=== PATIENT | male | born 1985 | race African-American/Black ===

== ENCOUNTER 2021-09-01 05:42 | Emergency (ER) | payer SELFPAY ==
[2021-09-01 05:49] VITALS: BP 134/79; PULSE 92; RESP 13; TEMP 36.4; O2SAT 98
[2021-09-01 05:50] VITALS: BMI 25.9
--- NOTE | 2021-09-01 05:52 | W.ED.CHESTPA ---
HPI - Chest Pain General: Chief Complaint: Chest Pain Stated Complaint: Chest Pains Time Seen by Provider: 09/01/21 05:52 Source: patient Mode of arrival: ambulatory Limitations: no limitations History of Present Illness: 35-year-old male presents emergency room complaining of onset of chest discomfort while sleeping. Patient will have pain that comes almost and like cycles of every several minutes he will get a sharp pain that seems to shoot through his chest lasts just a couple of seconds and then resolves its associated with a sensation of shortness of breath, he states it shoots and flashes out to all of his extremities and then resolves in seconds. He has no personal history of coronary artery disease he is not diabetic he is a light smoker and has been for a number of years occasional drinker and occasionally uses THC. He denies any other use of street drugs. He has no history of any pulmonary emboli. He has not had any chronic respiratory illnesses and is not on any inhalers. No recent fever sweats chills flulike symptoms. He has a family history of a mother who had heart disease had her first OK sometime in her mid 40s. No other family members with early heart disease. He has no siblings with early heart disease. He has not really noticed anything that relieves the symptoms and is not affected by deep breath or palpation of the lung anterior chest wall. He does relate an elaborate series of events that seems to exacerbated if he is up walking around takes a few big deep breaths then when he lays down he will get a sudden sharp pain that will last a few seconds. MD complaint: chest pain Onset (ago): hour(s) Timing of current episode: episodic Prior episodes: No Onset: during rest Pain location: left chest Pain radiation: other (Radiates to all extremities last seconds and then resolves) Severity: mild Quality: sharp Relieving factors: nothing Exacerbating factors: other (See HPI) Associated symptoms: Deny abdominal pain, diaphoresis, dyspnea, fever(s), leg edema, nausea, palpitations, sense of impending doom, syncope or vomiting Treatment prior to arrival: none Review of Systems Const: Denies: fever(s) or diaphoresis ENMT: Denies: throat pain, ear or mastoid pain, nasal discharge or nasal congestion Card: Denies: palpitations or syncope Resp: Denies: dyspnea GI: Denies: abdominal pain, nausea or vomiting : Denies: flank pain, dysuria, urinary frequency or urinary urgency Skin/Breast: Denies: rash or pruritus PFSH ED PFSH: Medical History (Updated 09/01/21 @ 09:14 by Krzysztof Haile DO) No significant past medical history Surgical History (Updated 09/01/21 @ 06:22 by Krzysztof Haile DO) No significant past surgical history Family History (Updated 09/01/21 @ 06:23 by Krzysztof Haile DO) Mother CAD (coronary artery disease) Social History (Updated 09/01/21 @ 06:23 by Krzysztof Haile DO) Smoking and tobacco status: current every day smoker Alcohol intake: current Substance/Drug Use: current Substance/Drug use type: Marijuana Physical Exam Const: COMMON NORMALS: no acute distress GENERAL APPEARANCE: cooperative and comfortable ORIENTATION/CONSCIOUSNESS: Yes awake, Yes oriented to person, Yes oriented to place and Yes oriented to time HENMT: COMMON NORMALS: normocephalic, atraumatic and hearing grossly normal bilaterally HEAD & SCALP: normocephalic and atraumatic Neck/C-Spine: COMMON NORMALS: no JVD Resp: COMMON NORMALS: normal respiratory effort, No retractions, No use of accessory muscles and clear to auscultation bilaterally AUSCULTATION: clear to auscultation bilaterally Cardio: COMMON NORMALS: no JVD, regular rate, regular rhythm and No murmurs present (Cardio) RATE: regular rate RHYTHM: regular rhythm GI: COMMON NORMALS: Soft to palpation and No hepatosplenomegaly present AUSCULTATION: Yes normoactive bowel sounds PALPATION: Yes Soft to palpation, No Tenderness to palpation present (GI), No Guarding due to palpation present (GI) and Yes No hepatosplenomegaly present Extremity: COMMON NORMALS: normal to inspection, capillary refill normal, no clubbing, cyanosis or edema, no calf tenderness and no pedal edema Neuro: SENSORIUM/ORIENTATION: Yes oriented to person, Yes oriented to place and Yes oriented to time Skin: COMMON NORMALS: no rashes or lesions noted GENERAL SKIN EXAM: no rashes or lesions noted Course Vital Signs: Vital signs: Vital Signs Temperature 97.5 F L 09/01/21 05:49 Pulse Rate 92 09/01/21 05:49 Respiratory Rate 13 09/01/21 05:49 Blood Pressure 134/79 09/01/21 05:49 Pulse Oximetry 98 09/01/21 05:49 MDM - Chest Pain Medical Decision Making Patient has some changes in EKG related to early repull but is not currently having any chest pain his troponins are negative there is no acute ST changes noted. Symptoms do not sound particularly cardiac he has these brief shooting pains at last for in the range of seconds. He states it radiates out to almost all parts of his body like a flash. At this point we will go ahead and discharge home set him up for an exercise stress test. I do think he should have that since he has a family history of mother with very early cardiac disease. Also start him on a PPI. Return if has further problems. Medical Records I reviewed the patient's medical records. Lab Data I reviewed the patient's lab results. : 09/01/21 05:59 09/01/21 05:59 Radiology Impressions Chest X-Ray 09/01/21 05:53 IMPRESSION: No evidence of acute cardiopulmonary disease. Laboratory Results WBC 5.0 10^3/uL (4.0-10.0) 09/01/21 05:59 RBC 5.28 10^6/uL (4.1-5.3) 09/01/21 05:59 Hgb 15.5 g/dL (11.7-16.6) 09/01/21 05:59 Hct 45.7 % (42.0-52.0) 09/01/21 05:59 MCV 86.6 fl (80-94) 09/01/21 05:59 MCH 29.4 pg (28.0-34.0) 09/01/21 05:59 MCHC 33.9 g/dL (30.0-36.0) 09/01/21 05:59 RDW 13.2 % (12.1-15.1) 09/01/21 05:59 Plt Count 340 10^3/cmm (130-400) 09/01/21 05:59 MPV 8.6 fL (7.4-10.4) 09/01/21 05:59 Neut % (Auto) 41.8 % 09/01/21 05:59 Lymph % (Auto) 42.8 % 09/01/21 05:59 Humphreys % (Auto) 11.0 % 09/01/21 05:59 Eos % (Auto) 3.4 % 09/01/21 05:59 Baso % (Auto) 0.8 % 09/01/21 05:59 Neut # (Auto) 2.09 10^3/uL (1.8-7.7) 09/01/21 05:59 Lymph # (Auto) 2.1 10^3/uL (0.8-4.8) 09/01/21 05:59 Humphreys # (Auto) 0.6 10^3/uL (0.2-0.9) 09/01/21 05:59 Eos # (Auto) 0.2 10^3/uL (0.0-0.8) 09/01/21 05:59 Baso # (Auto) 0.0 10^3/uL (0.0-0.1) 09/01/21 05:59 Nucleated RBC % (auto) 0 % 09/01/21 05:59 Nucleated RBCs # 0.0 /100WBC 09/01/21 05:59 D-Dimer 0.08 ug/mIFEU (0-0.59) 09/01/21 06:43 Sodium 137 mmol/L (136-145) 09/01/21 05:59 Potassium 4.4 mmol/L (3.5-5.1) 09/01/21 05:59 Chloride 100 mmol/L (98-107) 09/01/21 05:59 Carbon Dioxide 25 mmol/L (22-29) 09/01/21 05:59 Anion Gap 16.4 (5-19) 09/01/21 05:59 BUN 9 mg/dL (6-20) 09/01/21 05:59 Creatinine 0.9 mg/dL (0.7-1.2) 09/01/21 05:59 GFR Calculation 116.2 mL/min (90-130) 09/01/21 05:59 Glucose 88 mg/dL (65-115) 09/01/21 05:59 Calculated Osmolality 282 mOsm/kg (285-295) L 09/01/21 05:59 Calcium 8.7 mg/dL (8.5-10.5) 09/01/21 05:59 Total Bilirubin 0.6 mg/dL (0.15-1.2) 09/01/21 05:59 AST 30 U/L (0-40) 09/01/21 05:59 ALT 21 U/L (0-41) 09/01/21 05:59 Alkaline Phosphatase 77 IU/L (40-130) 09/01/21 05:59 Troponin T Baseline 7 ng/L (0-15) 09/01/21 05:59 Troponin T 120 Minute 6.38 ng/L (0-15) 09/01/21 08:11 Delta Troponin T -0.62 ABS# (0-10) L 09/01/21 08:11 Total Protein 7.0 g/dL (6.6-8.7) 09/01/21 05:59 Albumin 4.8 g/dL (3.5-5.2) 09/01/21 05:59 Globulin 2.2 g/dL (1.3-4.6) 09/01/21 05:59 Discharge Plan Discharge Patient Disposition: Home Clinical Impression: Atypical chest pain, Chest pain due to GERD Condition: Stable Prescriptions: New aspirin 81 mg tablet,delayed release (DR/EC) 81 mg PO DAILY Qty: 30 0RF pantoprazole 40 mg tablet,delayed release (DR/EC) 40 mg PO QAM 56 Days Qty: 56 0RF Discharge Orders: Discharge ED (Routine); Ordered 09/01/21 Ordered By: Krzysztof Haile Discharge Diet: Usual diet Discharge Activity: Resume usual activity Patient Instructions: Opioid Safety Activity Restrictions/Additional Instructions: enterprise project manager will make arrangements for you to have a exercise stress test and establish with a primary care physician. Return if you have further problems. Coding Level of Care Code ED Ramp Service Agent for Chg Fwd Exam Comprehensive
--- NOTE | 2021-09-01 05:53 | XRR_ITS ---
PROCEDURE INFORMATION: Exam: XR Chest Exam date and time: 09/01/2021 6:20 AM Age: 35 years old Clinical indication: Angina; Patient HX: Chest pain off and on since midnight; Additional info: Dyspnea/cough TECHNIQUE: Imaging protocol: XR of the chest. Views: 1 view. COMPARISON: No relevant prior studies available. FINDINGS: Lungs: No significant or acute findings. No consolidation. Pleural spaces: No significant costophrenic angle blunting. No pneumothorax. Heart/Mediastinum: Heart size is normal. Bones/joints: No acute osseous abnormality. XR/XR chest 1V portable [id number] IMPRESSION: No evidence of acute cardiopulmonary disease.
[2021-09-01 06:06] LABS: Basophils % 0.8 %; Eosinophils # 0.2 10^3/uL (0.0-0.8); Eosinophils % 3.4 %; Hematocrit 45.7 % (42.0-52.0); Hemoglobin 15.5 g/dL (11.7-16.6); Lymphocytes # 2.1 10^3/uL (0.8-4.8); Lymphocytes % 42.8 %; Mean Corpuscular HGB Conc 33.9 g/dL (30.0-36.0); Mean Corpuscular Hemoglobin 29.4 pg (28.0-34.0); Mean Corpuscular Volume 86.6 fl (80-94); Mean Platelet Volume 8.6 fL (7.4-10.4); Monocytes # 0.6 10^3/uL (0.2-0.9); Neutrophils # 2.09 10^3/uL (1.8-7.7); Neutrophils % 41.8 %; Nucleated Red Blood Cells % 0 %; Platelet Count 340 10^3/cmm (130-400); Red Blood Count 5.28 10^6/uL (4.1-5.3); Red Cell Distribution Width 13.2 % (12.1-15.1)
[2021-09-01 06:38] LABS: Alanine Aminotransferase 21 U/L (0-41); Albumin Level 4.8 g/dL (3.5-5.2); Alkaline Phosphatase 77 IU/L (40-130); Blood Urea Nitrogen 9 mg/dL (6-20); Calcium 8.7 mg/dL (8.5-10.5); Carbon Dioxide 25 mmol/L (22-29); Chloride 100 mmol/L (98-107); Globulin 2.2 g/dL (1.3-4.6); Glomerular Filtration Rate 116.2 mL/min (90-130); Glucose 88 mg/dL (65-115); Osmolality Calculated 282 mOsm/kg (285-295); Sodium 137 mmol/L (136-145); Total Bilirubin 0.6 mg/dL (0.15-1.2); Troponin(5th) Baseline 7 ng/L (0-15)
[2021-09-01 06:47] LABS: Anion Gap 16.4 (5-19); Aspartate Amino Transferase 30 U/L (0-40); Potassium 4.4 mmol/L (3.5-5.1)
[2021-09-01 07:07] LABS: D Dimer 0.08 ug/mIFEU (0-0.59)
--- NOTE | 2021-09-01 07:53 | ECG_ITS ---
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 Measurements Intervals [place] Rate: 66 P: 75 NM: 160 QRS: 79 QRSD: 100 T: 72 QT: 388 QTc: 408 Interpretive Statements SINUS RHYTHM POSSIBLE RIGHT VENTRICULAR CONDUCTION DELAY [RSR (QR) IN V1/V2] EARLY REPOLARIZATION [ST ELEVATION WITH NORMALLY INFLECTED T-WAVE] TYPE 3 BRUGADA PATTERN (NON-DIAGNOSTIC) [COVED/SADDLEBACK ST ELEVATION > 0.1mV IN 2 OF V1-3] No previous ECG available for comparison Electronically Signed On 09-01-2021 22:14:12 CDT by Grover Mckeon M.D. [id number]
[2021-09-01 08:37] LABS: Troponin 5 2HR 6.38 ng/L (0-15)
[2021-09-01 08:46] LABS: Troponin 5 2HR Delta -0.62 ABS# (0-10)
[2021-09-01 09:31] VITALS: BP 134/79; PULSE 76; RESP 16; O2SAT 97
--- NOTE | 2021-09-01 11:53 | ECG_ITS ---
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 Measurements Intervals [place] Rate: 54 P: 43 MS: 158 QRS: 76 QRSD: 98 T: 63 QT: 401 QTc: 383 Interpretive Statements SINUS BRADYCARDIA POSSIBLE RIGHT VENTRICULAR CONDUCTION DELAY [RSR (QR) IN V1/V2] EARLY REPOLARIZATION [ST ELEVATION WITH NORMALLY INFLECTED T-WAVE] Compared to ECG 09/01/2021 05:58:15 Sinus rhythm no longer present ST (T wave) deviation no longer present Electronically Signed On 09-01-2021 22:13:17 CDT by Grover Mckeon M.D. [id number]
--- NOTE | 2021-09-04 13:51 | DCPLANNER ---
Addendum entered by Yaz Cornelius 01/23/22 09:26: stress test was cancelled Addendum entered by Yaz Cornelius 09/04/21 15:06: aviation manager had message to schedule an outpatient stress test for patient. aviation manager spoke with patient he confirmed that he wanted the stress test ordered, and that he needs to be set up with a primary care physician. aviation manager will fax signed order for a stress test to centralized scheduling, who will call patient with appointment information. aviation manager had the results of the stress test sent to Dr. Florentino at [facility]. When stress test is scheduled, piano case maker will schedule a follow up appointment for patient with Dr. Florentino to go over the stress test results with patient. Patient needs the financial foundations representative applications, piano case maker sent them to patient. Original Note: aviation manager had message to schedule an outpatient stres
== END 2021-09-01 09:33 | disposition home or self-care (01) ==
PROVIDERS: Emergency Provider Family Medicine
DX: R07.89 Other chest pain (principal); K21.9 Gastro-esophageal reflux disease without esophagitis; F17.210 Nicotine dependence, cigarettes, uncomplicated
CPT/HCPCS: 36415; 71045; 80053; 84484; 85025; 85378; 93005; 99282

== ENCOUNTER 2022-03-06 05:14 | Emergency (ER) | payer SELFPAY ==
[2022-03-06 05:23] VITALS: BP 148/73; PULSE 93; RESP 20; TEMP 36.9; O2SAT 99
--- NOTE | 2022-03-06 05:26 | W.ED.DENTAL ---
HPI - Dental/Oral General: Chief complaint: Dental/Oral Stated complaint: tooth pain Time Seen by Provider: 03/06/22 05:22 Source: patient Mode of arrival: ambulatory Limitations: no limitations History of Present Illness: 36-year-old male states a left lower molar dental pain over the last 3 days he states he got much worse today states pain is currently 9 out of 10 he has a history dental caries has not seen a dentist she denies any fever denies any trismus denies any difficulty swallowing denies any worsening proving factors. Associated symptoms: Denies fever(s) Review of Systems Const: Denies: fever(s), chills, body aches or change in appetite Eyes: Denies: blurry vision or eye discomfort ENMT: Reports: dental pain Card: Denies: chest pain Resp: Denies: dyspnea GI: Denies: abdominal pain, nausea, vomiting or diarrhea : Denies: dysuria Musc: Denies: neck pain or back pain Skin/Breast: Denies: rash Neuro: Denies: headache(s) Psych: Denies: depression Raad/Lymph: Denies: easy bruising All/Imm: Denies: urticaria PFSH ED PFSH: Medical History No significant past medical history Surgical History No significant past surgical history Family History Mother CAD (coronary artery disease) Social History Smoking and tobacco status: current every day smoker Alcohol intake: current Physical Exam Const: COMMON NORMALS: no acute distress, patient oriented x3 and healthy appearing HENMT: COMMON NORMALS: normocephalic and atraumatic HEAD & SCALP: normocephalic and atraumatic OTHER: Large dental carry to left lower molar with tenderness to touch no abscess no trismus Eye: COMMON NORMALS: conjunctivae normal CONJUNCTIVA: Yes conjunctivae normal Neck/C-Spine: COMMON NORMALS: supple Chest: COMMONS NORMALS: normal inspection of the chest Resp: COMMON NORMALS: normal respiratory effort Cardio: COMMON NORMALS: regular rate and No murmurs present (Cardio) RATE: regular rate GI: INSPECTION: Yes normal to inspection Extremity: COMMON NORMALS: normal to inspection Neuro: COMMON NORMALS: patient oriented x3, moves all extremities and no focal motor deficits Psych: COMMON NORMALS: mental status grossly normal, Normal thought process present and cooperative THOUGHT PROCESS: Normal thought process present Skin: COMMON NORMALS: no rashes or lesions noted and no wounds GENERAL SKIN EXAM: no rashes or lesions noted Procedures Nerve Block Nerve Block 1: Local Anesthetic: bupivacaine 0.5% Amount of anesthesia used (mL): 10 Side: left Intraoral Nerve Block: inferior alveolar Patient Tolerated Procedure: well Complications: none Course Vital Signs: Vital signs: Vital Signs Temperature 98.4 F 03/06/22 05:30 Pulse Rate 93 03/06/22 05:30 Respiratory Rate 20 H 03/06/22 05:30 Blood Pressure 148/73 03/06/22 05:30 Pulse Oximetry 99 03/06/22 05:30 Oxygen Delivery Me thod 03/06/22 05:30 MDM - Dental/Oral Medical Decision Making Patient presents here with dental pain he does have a dental carry did a nerve block here his pain has improved we will prescribe him Naprosyn along with Keflex for home Discharge Plan Discharge Patient Disposition: Home Clinical Impression: Toothache Condition: Stable Prescriptions: New cephalexin 500 mg capsule 500 mg PO TID 7 Days Qty: 21 0RF Naprosyn 500 mg tablet 500 mg PO BID PRN (Reason: pain) Qty: 20 0RF No Action aspirin 81 mg tablet,delayed release (DR/EC) 81 mg PO DAILY Qty: 30 0RF Discharge Orders: Discharge ED (Routine); Ordered 03/06/22 Ordered By: Jessica Menjivar Discharge Diet: Advance as tolerated Discharge Activity: Resume usual activity Patient Instructions: Toothache (ED) Coding Level of Care Code ED Dry Cleaning Supervisor for Faisal Fwd Exam Comprehensive
[2022-03-06 05:30] VITALS: BP 148/73; PULSE 93; RESP 20; TEMP 36.9; O2SAT 99
[2022-03-06] MEDS: naproxen 500 mg Tablet PO (05:33)
== END 2022-03-06 05:40 | disposition home or self-care (01) ==
PROVIDERS: Emergency Provider Emergency Medicine
DX: K08.89 Other specified disorders of teeth and supporting structures (principal); Z79.82 Long term (current) use of aspirin; F17.210 Nicotine dependence, cigarettes, uncomplicated
CPT/HCPCS: 64450; 99283; J3490

== ENCOUNTER 2022-03-08 11:20 | Emergency (ER) | payer SELFPAY ==
[2022-03-08 11:42] VITALS: BP 126/81; PULSE 71; RESP 18; TEMP 36.3; O2SAT 100; BMI 27.2
[2022-03-08 11:45] VITALS: BP 126/81; PULSE 71; RESP 18; TEMP 36.3; O2SAT 100
--- NOTE | 2022-03-08 11:50 | W.ED.DENTAL ---
HPI - Dental/Oral General: Chief complaint: Dental/Oral Stated complaint: tooth pain Time Seen by Provider: 03/08/22 11:47 History of Present Illness: Mr Mueller is a 36-year-old male with history of poor dental care and dental caries presenting to the emergency department for left posterior tooth pain mandibular. He has had about 5 days of symptoms and was worsened 3 days ago when he presented to the emergency department. After dental block his symptoms improved however returned today. He has dental appointment tomorrow. Denies any other new significant changes, no fevers, trismus, difficulty swallowing, difficulty breathing. No other specific changes in health, exacerbating, or alleviating factors identified. Teeth map: 1. fractured, dental caries Duration: intermittent Severity: severe Exacerbating factors: chewing Context: history of dental caries and poor dental care Treatment prior to arrival: oral analgesic and other Review of Systems General: Reports: 10 or more systems reviewed and unremarkable except in HPI and below PFSH ED PFSH: Medical History No significant past medical history Surgical History No significant past surgical history Family History Mother CAD (coronary artery disease) Social History Smoking and tobacco status: current every day smoker Alcohol intake: current Physical Exam Const: COMMON NORMALS: alert GENERAL APPEARANCE: cooperative and well developed HENMT: COMMON NORMALS: normocephalic and atraumatic HEAD & SCALP: normocephalic and atraumatic TEETH & GINGIVA: Yes poor dentition THROAT: posterior oropharynx normal OTHER: fractured posterior mandibular left molar without abscess, dental caries present Eye: COMMON NORMALS: conjunctivae normal CONJUNCTIVA: Yes conjunctivae normal SCLERA: sclerae normal Neck/C-Spine: COMMON NORMALS: supple GENERAL: Yes trachea midline Resp: COMMON NORMALS: clear to auscultation bilaterally EFFORT & INSPECTION: Yes able to speak in complete sentences AUSCULTATION: clear to auscultation bilaterally Cardio: COMMON NORMALS: regular rate and regular rhythm RATE: regular rate RHYTHM: regular rhythm Extremity: GENERAL: Yes normal exam except as noted and No edema Neuro: COMMON NORMALS: moves all extremities SENSORIUM/ORIENTATION: Yes alert and No Orientation impaired Psych: COMMON NORMALS: mental status grossly normal and Normal thought process present THOUGHT PROCESS: Normal thought process present Procedures Nerve Block Nerve Block 1: Local Anesthetic: bupivacaine 0.5% Amount of anesthesia used (mL): 2 Side: left Intraoral Nerve Block: inferior alveolar Patient Tolerated Procedure: well and no complications Complications: none Course Vital Signs: Vital signs: Vital Signs Temperature 97.4 F L 03/08/22 13:00 Pulse Rate 71 03/08/22 13:00 Respiratory Rate 18 03/08/22 13:00 Blood Pressure 126/81 03/08/22 13:00 Pulse Oximetry 100 03/08/22 13:00 Oxygen Delivery Me thod 03/08/22 11:45 MDM - Dental/Oral Medical Decision Making 36-year-old gentleman presenting for dental pain. Previously had successful nerve block and has dental follow-up. Patient is nontoxic and there is no evidence of distortion of posterior pharyngeal/airway anatomy. Nerve block performed again with successful analgesia. The results of ED evaluation were discussed with the patient including prescriptions and/or symptomatic cares (if applicable) including appropriate and responsible use, followup plan, and return precautions. The patient verbalized understanding and felt safe for discharge. Medical Records I reviewed the patient's medical records. Lab Data I reviewed the patient's lab results. Discharge Plan Discharge Patient Disposition: Home Clinical Impression: Dental caries, Toothache Condition: Stable Prescriptions: No Action aspirin 81 mg tablet,delayed release (DR/EC) 81 mg PO DAILY Qty: 30 0RF Naprosyn 500 mg tablet 500 mg PO BID PRN (Reason: pain) Qty: 20 0RF Discharge Orders: Discharge ED (Routine); Ordered 03/08/22 Ordered By: Randy Gonzalez Discharge Diet: Usual diet Discharge Activity: Increase activity as tolerated Patient Instructions: Dental Caries (Cavities), Toothache (ED), Pain Management Activity Restrictions/Additional Instructions: Thank you for visiting the emergency department. You were seen and evaluated for dental pain. The most likely cause of condition is fractured tooth and dental caries. This is most appropriately cared for by dentist. Please ensure that you follow-up with a dentist tomorrow morning. Return to the emergency department for uncontrolled symptoms, fevers, difficulty opening her jaw, difficulty breathing or swallowing, or anything else that you are concerned about and feel needs emergency department evaluation. Coding Level of Care Code ED Aerospace Assembler for Faisal Fwd Exam Comprehensive
[2022-03-08] MEDS: ketorolac 30 mg/mL INJ 15 MG IM (12:44)
[2022-03-08] MEDS: acetaminophen 500 mg Tablet 1000 MG PO (12:44)
[2022-03-08 13:00] VITALS: BP 126/81; PULSE 71; RESP 18; TEMP 36.3; O2SAT 100
== END 2022-03-08 13:03 | disposition home or self-care (01) ==
PROVIDERS: Emergency Provider Emergency Medicine
DX: K02.9 Dental caries, unspecified (principal); K08.89 Other specified disorders of teeth and supporting structures; Z79.82 Long term (current) use of aspirin; F17.210 Nicotine dependence, cigarettes, uncomplicated
CPT/HCPCS: 64400; 96372; 99284; J1885

== ENCOUNTER 2022-03-08 20:40 | Emergency (ER) | payer SELFPAY ==
[2022-03-08 20:57] VITALS: BP 122/77; PULSE 73; RESP 16; TEMP 36.1; O2SAT 100
--- NOTE | 2022-03-08 21:24 | W.ED.DENTAL ---
HPI - Dental/Oral General: Chief complaint: Dental/Oral Stated complaint: tooth ache Time Seen by Provider: 03/08/22 21:16 History of Present Illness: Patient is a 36-year-old male who comes to the ED with dental pain. Patient was seen here in the ED for same complaint back on March 06 and earlier today on March 08. A oral nerve block was performed here in the ED by provider earlier today and he numbing medication has worn off. Patient is in 10 out of 10 pain due to bottom left back molar. He has an appointment with dentist at 11 AM tomorrow morning. Associated symptoms: Denies fever(s) or odynophagia Review of Systems Const: Denies: fever(s), chills or fatigue Eyes: Denies: change in vision or eye discomfort ENMT: Reports: dental pain; Denies: throat pain, odynophagia, nasal discharge or nasal congestion Card: Denies: chest pain, palpitations, edema, swelling of feet/ankles, dyspnea on exertion or orthopnea Resp: Denies: dyspnea, productive cough or non-productive cough GI: Denies: abdominal pain, nausea, vomiting, diarrhea, constipation or hematochezia : Denies: flank pain, difficulty urinating, dysuria or hematuria Musc: Denies: neck pain, back pain or extremity swelling Skin/Breast: Denies: rash or new lesions Neuro: Denies: headache(s), numbness in extremities or weakness in extremities [facility] ED PFSH: Medical History No significant past medical history Surgical History No significant past surgical history Family History Mother CAD (coronary artery disease) Social History Smoking and tobacco status: current every day smoker Alcohol intake: current Physical Exam Const: COMMON NORMALS: patient oriented x3 and alert GENERAL APPEARANCE: cooperative HENMT: COMMON NORMALS: normocephalic HEAD & SCALP: normocephalic MOUTH: Normal oral and palatal mucosa present TEETH & GINGIVA: Yes abnormal tooth and associated gingiva lower left third molar tender, with associated gingival edema and other (Extensive dental caries decay of tooth.) THROAT: posterior oropharynx normal and uvula midline Neck/C-Spine: COMMON NORMALS: supple GENERAL: Yes normal visual inspection Resp: COMMON NORMALS: normal respiratory effort, No retractions, No use of accessory muscles and clear to auscultation bilaterally AUSCULTATION: clear to auscultation bilaterally Cardio: COMMON NORMALS: regular rate, regular rhythm, S1 normal heart sound present, S2 normal heart sound present, No gallops present (Cardio), No clicks present (Cardio), No murmurs present (Cardio) and Peripheral pulses 2+ throughout RATE: regular rate RHYTHM: regular rhythm HEART SOUNDS: S1 normal heart sound present and S2 normal heart sound present PERIPHERAL PULSES: Peripheral pulses 2+ throughout GI: COMMON NORMALS: Normal to inspection, nondistended, normoactive bowel sounds present, Soft to palpation, non-tender and no masses PALPATION: Yes Soft to palpation : COMMON NORMALS: Yes no CVA tenderness BLADDER/KIDNEY EXAM: Yes no CVA tenderness Back/Pelvis: COMMON NORMALS: no CVA tenderness Extremity: COMMON NORMALS: normal to inspection Neuro: COMMON NORMALS: patient oriented x3 SENSORIUM/ORIENTATION: Yes alert GAIT: Yes Normal gait present Skin: GENERAL SKIN EXAM: dry skin Procedures Nerve Block Nerve Block 1: Time out performed: Yes Local Anesthetic: bupivacaine 0.5% Amount of anesthesia used (mL): 8 Side: left Intraoral Nerve Block: inferior alveolar Procedure Successful: Yes Patient Tolerated Procedure: well Complications: none Course Vital Signs: Vital signs: Vital Signs Temperature 97.0 F L 03/08/22 20:57 Pulse Rate 73 03/08/22 20:57 Respiratory Rate 16 03/08/22 20:57 Blood Pressure 122/77 03/08/22 20:57 Pulse Oximetry 100 03/08/22 20:57 Oxygen Delivery Me thod 03/08/22 20:57 MDM - Dental/Oral Medical Decision Making Patient is a 36-year-old male who presents here with dental pain. He has extensive dental caries of lower back left molar which is causing his pain. Inferior alveolar nerve block was performed to help with pain. See procedure note for details. His symptoms improved after nerve block. He has an appointment with his dentist tomorrow at 11 AM to evaluate dental pain. He was discharged home and told to continue taking his previously prescribed medications. Patient understood and agreed with plan. Discharge Plan Discharge Patient Disposition: Home Clinical Impression: Toothache Condition: Stable Prescriptions: No Action aspirin 81 mg tablet,delayed release (DR/EC) 81 mg PO DAILY Qty: 30 0RF cephalexin 500 mg capsule 500 mg PO TID 7 Days Qty: 21 0RF Naprosyn 500 mg tablet 500 mg PO BID PRN (Reason: pain) Qty: 20 0RF Discharge Orders: Discharge ED (Routine); Ordered 03/08/22 Ordered By: Eliot Abdullahi Discharge Diet: Regular Discharge Activity: Increase activity as tolerated Patient Instructions: Toothache (ED) Activity Restrictions/Additional Instructions: Follow-up with dentist at your scheduled appointment tomorrow. Continue taking all home medications as previously prescribed. Return to the ER or your medical provider if condition worsens. Please read and understand discharge instructions. Thank you for choosing [facility] for your healthcare needs today. Please realize this is an emergency room and that we are providing you with a medical screening exam and this may not be complete and all inclusive of all the testing and or work up that you may need to determine your ailment or severity of your illness. It is very important that you follow up as instructed or that you return to the Emergency Department should you have concerns or if your condition changes or worsens in any way. Coding Level of Care Code ED Anatomy Teacher for Faisal Cintron Exam Comprehensive
[2022-03-08] MEDS: HYDROcodone-acetaminophen 7.5-325 mg Tablet 2 TAB PO (22:43)
== END 2022-03-08 22:45 | disposition home or self-care (01) ==
PROVIDERS: Emergency Provider Physician Assistant
DX: K08.89 Other specified disorders of teeth and supporting structures (principal); Z79.82 Long term (current) use of aspirin; F17.210 Nicotine dependence, cigarettes, uncomplicated
CPT/HCPCS: 64400; 99283; J3490

== ENCOUNTER 2022-11-10 09:14 | Observation (INO) | payer SELFPAY ==
[2022-11-10] VITALS (12 sets, daily range): BP systolic 110–145; BP diastolic 57–78; PULSE 72–100; RESP 15–20; TEMP 36.3–36.8; O2SAT 96–100; BMI 29.2
[2022-11-10] MEDS: famotidine 20 mg/2 mL INJ 40 MG IVP (09:54)
--- NOTE | 2022-11-10 10:04 | CTR_ITS ---
PROCEDURE INFORMATION: Exam: CT Abdomen And Pelvis With Contrast Exam date and time: 11/10/2022 10:26 AM Age: 37 years old Clinical indication: Nausea and other: Black stool, coffee ground vomit; Additional info: Upper gi bleed TECHNIQUE: Imaging protocol: Computed tomography of the abdomen and pelvis with contrast. Radiation optimization: All CT scans at this facility use at least one of these dose optimization techniques: automated exposure control; mA and/or kV adjustment per patient size (includes targeted exams where dose is matched to clinical indication); or iterative reconstruction. Contrast material: OMNI 350; Contrast volume: 100 ml; Contrast route: INTRAVENOUS (IV); REPORTING DATA: Count of CT and Cardiac NM exams in prior 12 months: This patient has received 0 known CTs and 0 known cardiac nuclear medicine studies in the 12 months prior to the current study. COMPARISON: CR XR chest 1V portable [id number] 09/01/2021 6:20 AM RADIATION DOSE METRICS: Total DLP (mGy-cm): 492.36 FINDINGS: Lungs: There is a 4 mm noncalcified nodule in the right lower lobe (3:1). Liver: There is fatty change involving the liver parenchyma. Gallbladder and bile ducts: No calcified gallstones, gallbladder wall thickening, or pericholecystic inflammation. No biliary ductal dilation. Pancreas: No pancreatic enlargement, peripancreatic inflammation, or ductal dilation. Spleen: The spleen is homogeneous and is not enlarged. Adrenal glands: No adrenal mass. Kidneys and ureters: No hydronephrosis, nephrolithiasis, or renal mass. Stomach and bowel: The stomach is not distended. There is unusual gastric fundal wall thickening. Medially there is suggestion that the mucosa has from the outer portion of the gastric wall. However, a through and through gastric perforation is not appreciated. There is no fluid or gas around the stomach. There is ill-defined material in the dependent portion of the stomach which is higher in attenuation than the fluid in the stomach. This higher attenuation material could be due to blood clot in the lumen of the stomach given the history. Note that this is not a multiphasic GI bleeding CT scan. There are gas bubbles trapped beneath gastric folds in the fundus of the stomach. No bowel obstruction. There is fluid in multiple nondistended loops of small bowel as well as in the colon. This fluid potentially could be blood that has peristalsis distally from the stomach. No diverticulitis. Appendix: The appendix has a normal caliber. No periappendiceal inflammation. Intraperitoneal space: No ascites or pneumoperitoneum. Vasculature: The abdominal aorta and iliofemoral arteries are normal. The mesenteric arteries are normal. The mesenteric, splenic, portal, and hepatic veins are normal. Lymph nodes: No enlarged lymph nodes. Urinary bladder: There is circumferential bladder wall thickening which may be due to cystitis. No bladder calculus. Reproductive: The prostate is not enlarged for the patient's age. Bones/joints: No acute ossesous abnormality. Soft tissues: No acute soft tissue abnormality. CT/CT abdomen pelvis w con* [id number] IMPRESSION: 1. Unusual gastric fundal wall thickening with the suggestion that perhaps there has been some separation of the mucosa from the outer layer of the stomach though this would be very unusual. Some high attenuation material within the fluid of the stomach which could be due to blood clot. Further evaluation with endoscopy may be warranted. 2. Small right lower lobe nodule. For patients at low risk (minimal or absent history of smoking and of other known risk factors), no routine follow-up is indicated. For patients at high risk (history of smoking or of other known risk factors), consider optional CT Chest at 12 months. (Reference: Agusto) REFERENCES: Agusto Cobb, et al. Guidelines for Management of Incidental Pulmonary Nodules Detected on CT Images: From the Fleischner Society 2017. Radiology. 2017;284(1):228-243.
[2022-11-10] MEDS: sodium chloride 0.9% 1,000 ML 999 ML IV (10:05)
[2022-11-10 10:17] LABS: Gastricult Occult Blood Positive (Negative)
[2022-11-10] MEDS: iohexol 350 mg/mL 500 mL Btl (per mL) IV (10:19)
[2022-11-10 10:20] LABS: Basophils % 0.5 %; Eosinophils # 0.1 10^3/uL (0.0-0.8); Hematocrit 37.2 % (42.0-52.0); Hemoglobin 12.6 g/dL (11.7-16.6); Lymphocytes # 1.7 10^3/uL (0.8-4.8); Lymphocytes % 18.8 %; Mean Corpuscular HGB Conc 33.9 g/dL (30.0-36.0); Mean Corpuscular Hemoglobin 29.6 pg (28.0-34.0); Mean Corpuscular Volume 87.5 fl (80-94); Mean Platelet Volume 8.8 fL (7.4-10.4); Monocytes # 0.7 10^3/uL (0.2-0.9); Monocytes % 8.4 %; Neutrophils # 6.24 10^3/uL (1.8-7.7); Neutrophils % 70.5 %; Nucleated Red Blood Cells % 0 %; Platelet Count 318 10^3/cmm (130-400); Red Blood Count 4.25 10^6/uL (4.1-5.3); Red Cell Distribution Width 13.6 % (12.1-15.1); White Blood Count 8.8 10^3/uL (4.0-10.0)
[2022-11-10 10:36] LABS: INR 0.93 (0.8-1.2); Partial Thromboplastin Time 23.5 SECONDS (23.9-36.7)
[2022-11-10 10:41] LABS: Alanine Aminotransferase 16 U/L (0-41); Albumin Level 4.3 g/dL (3.5-5.2); Alkaline Phosphatase 70 U/L (40-130); Anion Gap 14.7 (5-19); Aspartate Amino Transferase 23 U/L (0-40); Blood Urea Nitrogen 35 mg/dL (6-20); Calcium 8.6 mg/dL (8.5-10.5); Carbon Dioxide 24 mmol/L (22-29); Chloride 103 mmol/L (98-107); Globulin 2.1 g/dL (1.3-4.6); Glomerular Filtration Rate 114.9 mL/min (90-130); Glucose 107 mg/dL (65-115); Osmolality Calculated 292 mOsm/kg (285-295); Potassium 4.7 mmol/L (3.5-5.1); Sodium 137 mmol/L (136-145); Total Bilirubin 0.8 mg/dL (0.15-1.2); Total Protein 6.4 g/dL (6.6-8.7)
[2022-11-10] MEDS: pantoprazole 40 mg SDV 80 MG IVP (10:59)
--- NOTE | 2022-11-10 10:59 | ED_ITS ---
HPI - GI Bleed General: Chief complaint: GI Bleed Stated complaint: NVD Time Seen by Provider: 11/10/22 09:29 Source: patient Mode of arrival: ambulatory History of Present Illness: 37-year-old male presents to the emergency room with complaints of dark emesis and melanic stools. Began overnight shortly after he arrived here he vomited about 400 mL of coffee-ground like emesis which did Gastroccult positive. He has not had any bright red blood per rectum or vomiting prior blood. He has been drinking heavily recently MD complaint: coffee ground emesis and melena Onset (ago): hour(s) Relieving factors: none Exacerbating factors: none Associated symptoms: Denies abdominal pain, chills, easy bruising, epistaxis, fever(s), headache(s), malaise, nausea, other bleeding, poor appetite, rash, syncope, vomiting or weakness Treatments Prior to Arrival: none Review of Systems Const: Denies: fever(s), chills or malaise ENMT: Denies: epistaxis Card: Denies: chest pain, palpitations, irregular heart rhythm or syncope Resp: Denies: dyspnea, productive cough or non-productive cough GI: Denies: abdominal pain, nausea or vomiting : Denies: flank pain, dysuria, urinary frequency or urinary urgency Musc: Denies: neck pain or back pain Skin/Breast: Denies: rash Neuro: Denies: headache(s) Raad/Lymph: Denies: easy bruising PFS ED PFSH: Medical History No significant past medical history Surgical History No significant past surgical history Family History Mother CAD (coronary artery disease) Social History Smoking and tobacco status: current every day smoker Alcohol intake: current Substance/Drug Use: current Physical Exam Const: GENERAL APPEARANCE: cooperative and comfortable ORIENTATION/CONSCIOUSNESS: Yes awake, Yes oriented to person, Yes oriented to place and Yes oriented to time HENMT: COMMON NORMALS: normocephalic, atraumatic and hearing grossly normal bilaterally HEAD & SCALP: normocephalic and atraumatic Resp: COMMON NORMALS: normal respiratory effort, No retractions, No use of accessory muscles and clear to auscultation bilaterally AUSCULTATION: clear to auscultation bilaterally Cardio: COMMON NORMALS: regular rate, regular rhythm and No murmurs present (Cardio) RATE: regular rate RHYTHM: regular rhythm GI: COMMON NORMALS: Soft to palpation and No hepatosplenomegaly present AUSCULTATION: Yes normoactive bowel sounds PALPATION: Yes Soft to palpation, No Tenderness to palpation present (GI), No Guarding due to palpation present (GI) and Yes No hepatosplenomegaly present Extremity: COMMON NORMALS: normal to inspection, capillary refill normal, no clubbing, cyanosis or edema, no calf tenderness and no pedal edema Neuro: SENSORIUM/ORIENTATION: Yes oriented to person, Yes oriented to place and Yes oriented to time Skin: COMMON NORMALS: no rashes or lesions noted GENERAL SKIN EXAM: no rashes or lesions noted Course Vital Signs: Vital signs: Vital Signs Temperature 97.8 F 11/10/22 09:25 Pulse Rate 88 11/10/22 11:23 Respiratory Rate 16 11/10/22 09:25 Blood Pressure 118/78 11/10/22 11:23 Pulse Oximetry 99 11/10/22 11:25 Oxygen Delivery Me thod Room Air 11/10/22 10:03 MDM - GI Bleed Medical Decision Making Gastroccult positive Hemoccult is a stable at 12.6. Will place in observation discussed with surgeon and with hospitalist. Patient has been given initially Pepcid and then started on Protonix. Keep n.p.o. observe repeat hemoglobins. Medical Records I reviewed the patient's medical records. Lab Data I reviewed the patient's lab results. 11/10/22 10:00 11/10/22 10:00 Radiology Impressions Abdomen/Pelvis CT 11/10/22 10:04 IMPRESSION: 1. Unusual gastric fundal wall thickening with the suggestion that perhaps there has been some separation of the mucosa from the outer layer of the stomach though this would be very unusual. Some high attenuation material within the fluid of the stomach which could be due to blood clot. Further evaluation with endoscopy may be warranted. 2. Small right lower lobe nodule. For patients at low risk (minimal or absent history of smoking and of other known risk factors), no routine follow-up is indicated. For patients at high risk (history of smoking or of other known risk factors), consider optional CT Chest at 12 months. (Reference: Agusto) REFERENCES: Agusto Cobb, et al. Guidelines for Management of Incidental Pulmonary Nodules Detected on CT Images: From the Fleischner Society 2017. Radiology. 2017;284(1):228-243. ADDENDUM: 11/10/22 1100 Findings were discussed with KRZYSZTOF MONTES at 11/10/2022 10:53 AM CDT. He will obtain a surgical consult. Laboratory Results WBC 8.8 10^3/uL (4.0-10.0) 11/10/22 10:00 RBC 4.25 10^6/uL (4.1-5.3) 11/10/22 10:00 Hgb 12.6 g/dL (11.7-16.6) 11/10/22 10:00 Hct 37.2 % (42.0-52.0) L 11/10/22 10:00 MCV 87.5 fl (80-94) 11/10/22 10:00 MCH 29.6 pg (28.0-34.0) 11/10/22 10:00 MCHC 33.9 g/dL (30.0-36.0) 11/10/22 10:00 RDW 13.6 % (12.1-15.1) 11/10/22 10:00 Plt Count 318 10^3/cmm (130-400) 11/10/22 10:00 MPV 8.8 fL (7.4-10.4) 11/10/22 10:00 Neut % (Auto) 70.5 % 11/10/22 10:00 Lymph % (Auto) 18.8 % 11/10/22 10:00 [place] % (Auto) 8.4 % 11/10/22 10:00 Eos % (Auto) 1.0 % 11/10/22 10:00 Baso % (Auto) 0.5 % 11/10/22 10:00 Neut # (Auto) 6.24 10^3/uL (1.8-7.7) 11/10/22 10:00 Lymph # (Auto) 1.7 10^3/uL (0.8-4.8) 11/10/22 10:00 [place] # (Auto) 0.7 10^3/uL (0.2-0.9) 11/10/22 10:00 Eos # (Auto) 0.1 10^3/uL (0.0-0.8) 11/10/22 10:00 Baso # (Auto) 0.0 10^3/uL (0.0-0.1) 11/10/22 10:00 Nucleated RBC % (auto) 0 % 11/10/22 10:00 Nucleated RBCs # 0.0 /100WBC 11/10/22 10:00 PT 12.80 SECONDS (12.1-14.9) 11/10/22 10:00 INR 0.93 (0.8-1.2) 11/10/22 10:00 APTT 23.5 SECONDS (23.9-36.7) L 11/10/22 10:00 Sodium 137 mmol/L (136-145) 11/10/22 10:00 Potassium 4.7 mmol/L (3.5-5.1) 11/10/22 10:00 Chloride 103 mmol/L (98-107) 11/10/22 10:00 Carbon Dioxide 24 mmol/L (22-29) 11/10/22 10:00 Anion Gap 14.7 (5-19) 11/10/22 10:00 BUN 35 mg/dL (6-20) H 11/10/22 10:00 Creatinine 0.9 mg/dL (0.7-1.2) 11/10/22 10:00 GFR Calculation 114.9 mL/min (90-130) 11/10/22 10:00 Glucose 107 mg/dL (65-115) 11/10/22 10:00 Calculated Osmolality 292 mOsm/kg (285-295) 11/10/22 10:00 Calcium 8.6 mg/dL (8.5-10.5) 11/10/22 10:00 Total Bilirubin 0.8 mg/dL (0.15-1.2) 11/10/22 10:00 AST 23 U/L (0-40) 11/10/22 10:00 ALT 16 U/L (0-41) 11/10/22 10:00 Alkaline Phosphatase 70 U/L (40-130) 11/10/22 10:00 Total Protein 6.4 g/dL (6.6-8.7) L 11/10/22 10:00 Albumin 4.3 g/dL (3.5-5.2) 11/10/22 10:00 Globulin 2.1 g/dL (1.3-4.6) 11/10/22 10:00 Gastric Occult Blood Positive (Negative) H 11/10/22 10:04 Blood Type A Positive 11/10/22 10:10 Rho(D) Type Positive 11/10/22 10:10 Antibody Screen Negative 11/10/22 10:10 Discharge Plan Discharge Condition: Stable Prescriptions: No Action aspirin 81 mg tablet,delayed release (DR/EC) 81 mg PO DAILY Qty: 30 0RF Naprosyn 500 mg tablet 500 mg PO BID PRN (Reason: pain) Qty: 20 0RF Coding Level of Care Code ED Hotel Administrative Assistant for Faisal Cintron
--- NOTE | 2022-11-10 12:00 | PM.HP ---
Providers/Chief Complaint Admitting Physician: Lai Millan MD, hospitalist Chief Complaint: NVD History of Present Illness Brock Muellre is a 37 year old male presenting to the hospital with concerns of GI bleeding. He had some dark stool last night, and started vomiting coffee-ground material this morning. 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 He did vomit in the emergency department, and this was consistent with coffee-ground emesis. It was positive for blood. He has had some abdominal pain, which she describes as minimal and improved. He believes it was secondary to vigorous vomiting. He denies any recent anti-inflammatory use. He does not drink a lot of caffeine. He does drink alcohol sporadically, and had quite a bit in the last several days. He has never had any kind of GI bleeding before. He denies any chronic medical problems. Review of Systems General: Reports: 10 or more systems reviewed and unremarkable except in HPI and below Card: Denies: chest pain Resp: Denies: dyspnea GI: Reports: coffee ground emesis and melena Medications/Allergies Home Medications Medication Instructions Recorded Confirmed Last Taken Type aspirin 81 mg tablet,delayed 81 mg PO DAILY #30 tabs 09/01/21 Unknown Rx release naproxen 500 mg tablet (Naprosyn) 500 mg PO BID PRN pain #20 tabs 03/06/22 Unknown Rx Allergies Allergy/AdvReac Type Severity Reaction Status Date / Time No Known Allergies Allergy Verified 11/10/22 09:30 PFSH Acute PFSH: Medical History No significant past medical history Surgical History No significant past surgical history Family History Mother CAD (coronary artery disease) Social History Smoking and tobacco status: current every day smoker Alcohol intake: current Substance/Drug Use: current Other PFSH information: Supplemental PFSH Information: Denies any significant past medical history or surgeries Vitals/I&O/Wt Last Vital Signs Temp 97.8 F 11/10/22 09:25 Pulse 88 11/10/22 11:23 Resp 16 11/10/22 09:25 BP 118/78 11/10/22 11:23 Pulse Ox 99 11/10/22 11:25 O2 Del Method Room Air 11/10/22 10:03 Weight last 48 hrs Weight 92.533 kg Physical Exam Narrative: General exam demonstrates a male, in no apparent distress, conversant HEENT: Atraumatic normocephalic. Oropharynx clear Neck is supple no lymphadenopathy thyromegaly Cardiovascular regular rate and rhythm without murmur Lungs clear no wheezing or crackles Abdomen is soft with positive bowel sounds. No obvious organomegaly exam is deferred Extremities no cyanosis clubbing or edema, cap refill brisk Skin no rash Neuro no obvious focal deficits Data 11/10/22 10:00 11/10/22 10:00 Other Labs: INR is normal LFTs are normal Gastroccult positive Calcium is normal CT demonstrates gastric fundal wall thickening, question separation from mucosa with some fluid in the stomach, cannot rule out blood or blood clot. Small right lung nodule is also noted. Recommend consideration of follow-up in 1 year. A&P Assessment and plan (1) GI bleed: Patient presents with a GI bleeding, manifested by dark stools and coffee-ground emesis. This was Gastroccult positive in the emergency department. His initial hemoglobin is 12.6. We will repeat this in approximately 4 to 5 hours, unless symptoms dictate otherwise He has received Protonix in the emergency department. Continue 40 mg IV every 12 hours Keep n.p.o. currently with exception of ice chips. Would consider clear liquid diet later this evening if no abdominal pain and no further vomiting Surgery consult for concerns of GI bleed with abnormal CT scan fundal thickening with separation of mucosa. Question if this represents a Hazel Mohr tear. Counseled him on avoiding alcohol. Plan Lung nodule. Consider follow-up in 1 year Low risk for DVT, no prophylaxis needed Full code Attestations Medical Necessity Statement*: Will need less than 2 midnight stay for evaluation of GI bleed Diagnoses GI bleed K92.2 Time Spent (min) 42
[2022-11-10] MEDS: sodium chloride 0.9% 1,000 ML 100 ML IV (14:02)
--- NOTE | 2022-11-10 16:15 | P.CONIM_ITS ---
Providers/Reason For Consult Consulting Physician/Specialty*: Manny Robert MD general surgery Reason for Consult*: Upper GI bleed Requesting Physician: Kar Millan MD Attending Physician: Lai Millan MD History of Present Illness History of Present Illness Brock Mueller is a 37 year old male developed lower abdominal pain and epigastric pain yesterday and melanotic stool x2 and coffee ground emesis last night and into early AM. Pain is gone and no history of PUD in past. He had a near syncopal episode after melanotic stools with sweating and lightl he adedness. He has not had previous episode of UGI bleed before. He is not on any strong blood thinner and last ate yesterday. He had a small melanotic stool in ER area. He has not been on NSAID, aspirin, steroids recently. He has not required transfusion in past. He denies any abdominal pain currently. He does smoke daily. He has not had EGD done recently. No family history of GI tract cancer. Breast cancer does run in family. He denies any F/C/S and has had slightly decreased appetite yesterday. CT scan shows possible ulcers in stomach. Hgb in past around 15 and now 12's. SBP 110's with HR 80-90. Review of Systems Narrative: Constitutional: denies rigors, singnificant weight gain, increased appetite HEENT: denies chronic cough, blurry vision, excessive tearing, eye pain, flashing lights, odynophagia, painful mastication, change in voice, change in taste, chronic sore throat, hypersalivation Heart: denies racing heart, palpitations, othropnea, PND Lungs: denies hemoptysis, pain with deep inspiration, chronic bronchitis GI: denies dysphagia, tenesmus : denies polyuria, hematuria, painful micturation Musculoskeletal: denies hemarthrosis, Muscle wasting, change in amubation Neuro: denies new onset syncope, dysesthesia, dysequilibrium, ptosis eyelid or face SKin: denies new onset hyperalgia, new rash new cyanosis Endocrine: denies new polyuria, polydipsia, polyphagia, heat intolerance, excessive energy Hem/Onc: denies new petechiae, swollen glands, new excessive epstaxis Psych: denies racing thought Medications/Allergies Home Medications Medication Instructions Recorded Confirmed Last Taken Type aspirin 81 mg tablet,delayed 81 mg PO DAILY #30 tabs 09/01/21 Unknown Rx release naproxen 500 mg tablet (Naprosyn) 500 mg PO BID PRN pain #20 tabs 03/06/22 Unknown Rx Allergies Allergy/AdvReac Type Severity Reaction Status Date / Time No Known Allergies Allergy Verified 11/10/22 09:30 Current Medications Generic Name Dose Route Start Last Admin Trade Name Freq PRN Reason Stop Dose Admin Sodium Chloride 1,000 mls @ 100 mls/hr 11/10/22 13:28 11/10/22 14:02 Sodium Chloride 0.9% IV 100 mls/hr .Q10H ROYA Administration PFSH Acute PFSH: Medical History No significant past medical history Surgical History No significant past surgical history Family History Mother CAD (coronary artery disease) Social History Smoking and tobacco status: current every day smoker Alcohol intake: current Substance/Drug Use: current Vitals/I&O/Wt Last Vital Signs Temp 97.5 F L 11/10/22 13:28 Pulse 72 11/10/22 15:20 Resp 20 H 11/10/22 13:28 BP 138/74 11/10/22 13:28 Pulse Ox 97 11/10/22 15:20 O2 Del Method Room Air 11/10/22 15:20 11/10/22 11/10/22 11/10/22 06:59 14:59 22:59 Intake Total 1000 / 1000 Balance 1000 / 1000 Weight last 48 hrs Weight 204 lb Physical Exam Narrative: Patient is a well developed well nourished and in NAD and is afebrile with vitals stable and is answering questions appropriately with a normal affect and is alert and oriented x3 HEENT: normocephalic with normal external ears and nonicteric, oral mucosa moist and dentition normal for age, trachea midline with no large masses visualized Heart: RRR, no gallops murmurs or rubs, normal PMI with no thrills Lungs: normal excursions, no loud audible wheezing, no subcutaneous emphysema Abdomen: nondistended, no gross hepatosplenomegaly, no masses, no rigidity or rebound, no loud borborygmi Neuro: nonfocal, RASHID, grossly normal sensation Musculoskeletal: good muscle tone, no fasciculations, normal gait Skin: pink warm and dry with no rashes or ecchymosis Vascular: good radial pulses, no ulceration, less than 2 second capillary refill in hand : deferred Data 11/10/22 10:00 11/10/22 10:00 A&P Assessment and plan (1) GI bleed: Upper GI bleed possibly from PUD. PPI, npo and transfusion as necessary. He will need EGD with control of bleeding later today if he continues to have significant bleeding. His last BM earlier in morning showed less bloody and smaller volume c/w bleeding that may have stopped. Otherwise plan on EGD tomorrow AM if vitals are stable. He understands risks benefits and alternatives to egd control of bleeding and possible biopsy. Risks include bleeding infection, cardiopulmonary problems, recurrent bleeding, more procedures aspiration, perforation, missed lesion. Consult Attestations Medical Necessity Statement: Patient with recent GI bleeding with drop in hgb. Coding Level of Care Code 60314 Diagnoses GI bleed K92.2
[2022-11-10 17:41] LABS: Hematocrit 34.3 % (42.0-52.0); Hemoglobin 11.6 g/dL (11.7-16.6)
[2022-11-10] MEDS: sucralfate 1 gm/10 mL Oral Liq UDC PO (20:21)
[2022-11-10] MEDS: pantoprazole 40 mg SDV IVP (21:45)
[2022-11-11] VITALS (8 sets, daily range): BP systolic 102–139; BP diastolic 53–82; PULSE 67–86; RESP 15–18; TEMP 36.1–36.7; O2SAT 99–100
[2022-11-11] MEDS: sodium chloride 0.9% 1,000 ML 100 ML IV (01:57)
[2022-11-11 05:54] LABS: Basophils % 0.4 %; Eosinophils # 0.1 10^3/uL (0.0-0.8); Eosinophils % 2.1 %; Hematocrit 32.3 % (42.0-52.0); Lymphocytes # 1.8 10^3/uL (0.8-4.8); Lymphocytes % 37.4 %; Mean Corpuscular HGB Conc 34.1 g/dL (30.0-36.0); Mean Corpuscular Hemoglobin 30.6 pg (28.0-34.0); Mean Platelet Volume 8.7 fL (7.4-10.4); Monocytes # 0.4 10^3/uL (0.2-0.9); Monocytes % 8.9 %; Neutrophils # 2.38 10^3/uL (1.8-7.7); Neutrophils % 50.6 %; Nucleated Red Blood Cells % 0 %; Platelet Count 243 10^3/cmm (130-400); Red Blood Count 3.59 10^6/uL (4.1-5.3); Red Cell Distribution Width 13.7 % (12.1-15.1); White Blood Count 4.7 10^3/uL (4.0-10.0)
[2022-11-11 06:16] LABS: Alanine Aminotransferase 13 U/L (0-41); Albumin Level 3.7 g/dL (3.5-5.2); Alkaline Phosphatase 64 U/L (40-130); Aspartate Amino Transferase 20 U/L (0-40); Blood Urea Nitrogen 16 mg/dL (6-20); Calcium 8.5 mg/dL (8.5-10.5); Carbon Dioxide 25 mmol/L (22-29); Chloride 105 mmol/L (98-107); Globulin 2.1 g/dL (1.3-4.6); Glomerular Filtration Rate 101.7 mL/min (90-130); Glucose 93 mg/dL (65-115); Magnesium 2.1 mg/dL (1.7-2.3); Osmolality Calculated 287 mOsm/kg (285-295); Sodium 138 mmol/L (136-145); Total Bilirubin 0.6 mg/dL (0.15-1.2); Total Protein 5.8 g/dL (6.6-8.7)
[2022-11-11] MEDS: sodium chloride 0.9% 1,000 ML 30 ML IV (08:46)
--- NOTE | 2022-11-11 09:00 | P.ANESASSM_ITS ---
Pre-Anesthetic Assessment Height/Weight: Height 1.78 m Weight 92.533 kg Temp Pulse Resp BP Pulse Ox O2 Del Method 97.6 F 73 16 123/53 100 Room Air 11/11/22 07:55 11/11/22 07:55 11/11/22 07:55 11/11/22 07:55 11/11/22 07:55 11/11/22 07:55 Preop Diagnosis: upper GI bleed Operation Date: 11/11/22 08:20 Proposed Procedures p EGD(Not Applicable) - Rusty Robert MD Familial anesthetic complications: None Was Beta Juancho taken within 24 hours: N/A Was Clonidine taken within 24 hours: N/A Last intake: Intake Last Liquid Date 11/10/22 Last Liquid Time 01: Last Solid Date 11/10/22 Last Solid Time 01:30 Social Alcohol (Social) and Tobacco (Social some marijuana) Exam alert, oriented x 3, clear to auscultation bilaterally and regular rate & rhythm Airway Submandibular: within normal limits Cervical ROM: within normal limits Mallampati: Class III Dentition: chipped (Back right wisdom tooth chipped) History/ROS No significant history except as noted and No significant complaints Pulmonary None reported CV/HEM None reported None reported Hepatic None reported GI Gastroesophageal Reflux Disease (None this am) and Peptic Ulcer Disease N/V in ED, none since Metabolic None reported Musc/skel Lower Back Pain Neuropsych Seizure (5-7 years ago, none since) Anesthetic Plan ASA status: 2 Anesthesia: Anesthesia Evaluation, General and MAC Risk of > 500 ml blood loss (7ml/kg in children): No Medications/Allergies Home Medications Medication Instructions Recorded Confirmed Last Taken Type aspirin 81 mg tablet,delayed 81 mg PO DAILY #30 tabs 09/01/21 Unknown Rx release naproxen 500 mg tablet (Naprosyn) 500 mg PO BID PRN pain #20 tabs 03/06/22 Unknown Rx Allergies Allergy/AdvReac Type Severity Reaction Status Date / Time No Known Allergies Allergy Verified 11/10/22 09:30 Current Medications Generic Name Dose Route Start Last Admin Trade Name Freq PRN Reason Stop Dose Admin Sodium Chloride 1,000 mls @ 100 mls/hr 11/10/22 13:28 11/11/22 01:57 Sodium Chloride 0.9% IV 100 mls/hr .Q10H ROYA Administration Sodium Chloride 1,000 mls @ 30 mls/hr 11/11/22 08:15 11/11/22 08:46 Sodium Chloride 0.9% IV 11/12/22 08:14 30 mls/hr .Q24H ROYA Administration Pantoprazole Sodium 40 mg 11/10/22 22:00 11/10/22 21:45 Pantoprazole 40 Mg Sdv IVP 40 mg Q12H ROYA Administration Sucralfate 1 gm 11/10/22 21:00 11/11/22 07:44 Sucralfate 1 Gm/10 Ml Oral Liq Udc PO Not Given QID [facility] Anesthesia Medical History No significant past medical history Surgical History No significant past surgical history Family History Mother CAD (coronary artery disease) Social History Smoking and tobacco status: current every day smoker Alcohol intake: current Substance/Drug Use: current Supplemental [facility] Information Denies any significant past medical history or surgeries Data Anesthesia 11/11/22 05:30 11/11/22 05:30 Short CBC 11/10/22 11/10/22 11/11/22 Range/Units 10:00 17:14 05:30 WBC 8.8 4.7 (4.0-10.0) 10^3/uL Hgb 12.6 11.6 L 11.0 L (11.7-16.6) g/dL Hct 37.2 L 34.3 L 32.3 L (42.0-52.0) % MCV 87.5 90.0 (80-94) fl Plt Count 318 243 (130-400) 10^3/cmm Neut % (Auto) 70.5 50.6 % Neut # (Auto) 6.24 2.38 (1.8-7.7) 10^3/uL BMP 11/10/22 11/11/22 10:00 05:30 Sodium 137 138 Potassium 4.7 4.0 Chloride 103 105 Carbon Dioxide 24 25 BUN 35 H 16 Creatinine 0.9 1.0 Glucose 107 93 Calcium 8.6 8.5 Liver Function 11/10/22 11/11/22 Range/Units 10:00 05:30 Total Bilirubin 0.8 0.6 (0.15-1.2) mg/dL AST 23 20 (0-40) U/L ALT 16 13 (0-41) U/L Alkaline Phosphatase 70 64 (40-130) U/L Albumin 4.3 3.7 (3.5-5.2) g/dL Blood Bank 11/10/22 10:10 Blood Type A Positive Rho(D) Type Positive Antibody Screen Negative Coags 11/10/22 10:00 PT 12.80 INR 0.93 APTT 23.5 L Cardiac Studies: No Data to Display
--- NOTE | 2022-11-11 09:10 | PC.CHAP ---
Pastoral Care Encounter/Spiritual Assessment Type of Contact [] Declined pbx technician visit [] Patient/Family/Request visit [] Outpatient visit [] Follow-up visit [] Physician referral [] Code/Alert [] Routine visit [] Staff referral [] Actively dying [] Patient sleeping [] Family support [] [x] Out of room [] Palliative care [] [] Receiving care in room [] Pre-surgical visit [] Trauma [] Long length of stay [] ICU visit [] Other: Relational/Emotional Strength [] Patient feels connected with others/family/visitors/staff [] Distress [] Loneliness/isolation [] Abandonment Spirituality of Patient [] Person of Chioma [] Attends Jewish of their [place] [] Believes in Prayer [] Reads Bible or Methodist materials [] There are Spiritual issues to be addressed [employer] Interventions [] Prayer [] Active listening [] Non-anxious presence [] Spiritual/emotional support [] Crisis/trauma care [] Spiritual counseling [] Bereavement support [] Provided bereavement packet [] Provided Bible/devotional materials [] Provided toy/stuffed animal, coloring book to patient or family member [] Provided Communion [] Anointing/[place] [] Salvation [] Completed spiritual assessment [] Other: Impact on Illness or Injury [] Angry [] Fearful [] Anxious [] Often cries [] Exhaustion [] Unable to work [] Unable to attend alevism [] Unable to walk/stand [] Unable to read [] Unable to drive [] Unable to eat/drink [] Unable to sleep [] Unable to be with family [] Patient intubated [] Other: Summary Time spent with patient
--- NOTE | 2022-11-11 09:45 | PM.OP ---
Operative Report Date of procedure: November 11, 2022 Pre-op diagnosis: Preop Diagnosis upper GI bleed Post-op diagnosis: duodenitis and gastric ulcer Post-op findings: No fresh blood. flat based yellow based 6-8 mm gastric ulcer near greater curve at junction of upper third and middle third of stomach. Duodenitis first portion Procedure done: Upper endoscopy with biopsy second portion of duodenum and antrum x2 with one specimen for JEFFERY testing and GE junction Specimens removed/disposition: D2 forcep x1, antrum forcep x2 with one sent for JEFFERY, forcep x1 GE junction Surgeon: Manny Robert MD Anesthesia: Other (IV sedation) Complications: none Brief History: Patient with episodes of coffee ground emesis and melena. Hgb from 15 to 11. He has never had endoscopy before. He understands risks, benefits and alternatives to procedure. Risks include bleeding, infection, cardiopulmonary problems, perforation, missed lesion, more procedures, recurrent bleeding, aspiration Procedure: After adequate IV sedation patient was placed in left lateral decubitus position. Under direct vision upper endoscope was advanced into esophagus. There was no masses, inflammation, varices or ulcers or old blood or bleeding. Z line at 40 cm. Scoped advanced into stomach and again no retained food or old or fresh blood seen. A small amount of greenish bile seen in stomach. This was different from golder bile seen in duodenum. A 6-8 mm flat yellow base with no adherent clot or vessel seen at junction of middle and upper third of stomach. No varices were seen. Scope was retroflexed and fundus looked normal. Scope was advanced into duodenum and duodenitis of first portion was seen and no ulcer seen. No retained food, or old or new blood seen. Golder bile seen in duodenum. Forcep biopsy of second portion performed. Scope was pulled back into stomach and antral forcep biopsy x2 was done and one was sent for JEFFERY testing. GE junction was biopsied x1 with forcep and no significant hiatal hernia or Guaman's seen. As much air was aspirated out of stomach as possible and scope was removed from patient competely. Patient tolerated procedure well and sent back to recovery room.
--- NOTE | 2022-11-11 11:46 | P.DS_ITS ---
Discharge Providers Date of Admission: 11/10/22 12:32 Date of Discharge: November 11, 2022 Attending Provider at Admission: Lai Millan MD Attending Provider at Discharge: Lai Millan MD Diagnoses at Discharge Discharge Diagnosis (1) GI bleed: Status: Acute Reason for Visit Reason for Visit: NVD Hospital Course Hospital Course Brock is a 37-year-old white male who presented to the emergency department with coffee-ground emesis and dark tarry stools. He was Gastroccult positive, and having a GI bleed. He was placed on Protonix twice daily, Carafate, and serial hemoglobins were measured. The following day and EGD was performed which demonstrated a 6 to 8 mm gastric ulcer near the greater curve of the stomach. A CT scan done in the emergency department suggested some fundal thickening and abnormality. Biopsies were taken for H. pylori and pathology. During the patient's admission he had no further evidence of bleeding. Hemoglobin did drift down to approximately 11 with hydration. Following his EGD he tolerated lunch without difficulty and it was thought he could be discharged home. He was given an opportunity ask questions, and agreed with the plan. He is to avoid all alcohol, tobacco, nicotine. He is to take all medicine as prescribed including Protonix and Carafate. He will follow-up with general surgery, and primary care provider will be established in 3 to 5 days. He is to return for any concerns. Physical Exam Narrative: General exam no distress Neck is supple Cardiovascular regular rate and rhythm without murmur Lungs clear Abdomen is soft, no tenderness, positive bowel sounds Extremities no cyanosis clubbing or edema, cap refill brisk Discharge Data Studies Completed and Pending Completed Studies During Hospitalization Category Date Time Status CT abdomen pelvis w con* [id number] Stat Cat Scan 11/10/22 10:04 Completed Pending at discharge Category Date Time Status H. Pylori / JEFFERY Test Routine Lab 11/11/22 09:42 Ordered Pathology: Surgical [PTH] Routine Pth 11/11/22 09:42 Ordered Radiology Impressions Abdomen/Pelvis CT 11/10/22 10:04 IMPRESSION: 1. Unusual gastric fundal wall thickening with the suggestion that perhaps there has been some separation of the mucosa from the outer layer of the stomach though this would be very unusual. Some high attenuation material within the fluid of the stomach which could be due to blood clot. Further evaluation with endoscopy may be warranted. 2. Small right lower lobe nodule. For patients at low risk (minimal or absent history of smoking and of other known risk factors), no routine follow-up is indicated. For patients at high risk (history of smoking or of other known risk factors), consider optional CT Chest at 12 months. (Reference: Agusto) REFERENCES: Agusto Cobb, et al. Guidelines for Management of Incidental Pulmonary Nodules Detected on CT Images: From the Fleischner Society 2017. Radiology. 2017;284(1):228-243. ADDENDUM: 11/10/22 1100 Findings were discussed with JORGE MONTES at 11/10/2022 10:53 AM CDT. He will obtain a surgical consult. Laboratory Results WBC 4.7 10^3/uL (4.0-10.0) 11/11/22 05:30 RBC 3.59 10^6/uL (4.1-5.3) L 11/11/22 05:30 Hgb 11.0 g/dL (11.7-16.6) L 11/11/22 05:30 Hct 32.3 % (42.0-52.0) L 11/11/22 05:30 MCV 90.0 fl (80-94) 11/11/22 05:30 MCH 30.6 pg (28.0-34.0) 11/11/22 05:30 MCHC 34.1 g/dL (30.0-36.0) 11/11/22 05:30 RDW 13.7 % (12.1-15.1) 11/11/22 05:30 Plt Count 243 10^3/cmm (130-400) 11/11/22 05:30 MPV 8.7 fL (7.4-10.4) 11/11/22 05:30 Neut % (Auto) 50.6 % 11/11/22 05:30 Lymph % (Auto) 37.4 % 11/11/22 05:30 [place] % (Auto) 8.9 % 11/11/22 05:30 Eos % (Auto) 2.1 % 11/11/22 05:30 Baso % (Auto) 0.4 % 11/11/22 05:30 Neut # (Auto) 2.38 10^3/uL (1.8-7.7) 11/11/22 05:30 Lymph # (Auto) 1.8 10^3/uL (0.8-4.8) 11/11/22 05:30 Nicol[place] # (Auto) 0.4 10^3/uL (0.2-0.9) 11/11/22 05:30 Eos # (Auto) 0.1 10^3/uL (0.0-0.8) 11/11/22 05:30 Baso # (Auto) 0.0 10^3/uL (0.0-0.1) 11/11/22 05:30 Nucleated RBC % (auto) 0 % 11/11/22 05:30 Nucleated RBCs # 0.0 /100WBC 11/11/22 05:30 PT 12.80 SECONDS (12.1-14.9) 11/10/22 10:00 INR 0.93 (0.8-1.2) 11/10/22 10:00 APTT 23.5 SECONDS (23.9-36.7) L 11/10/22 10:00 Sodium 138 mmol/L (136-145) 11/11/22 05:30 Potassium 4.0 mmol/L (3.5-5.1) 11/11/22 05:30 Chloride 105 mmol/L (98-107) 11/11/22 05:30 Carbon Dioxide 25 mmol/L (22-29) 11/11/22 05:30 Anion Gap 12.0 (5-19) 11/11/22 05:30 BUN 16 mg/dL (6-20) 11/11/22 05:30 Creatinine 1.0 mg/dL (0.7-1.2) 11/11/22 05:30 GFR Calculation 101.7 mL/min (90-130) 11/11/22 05:30 Glucose 93 mg/dL (65-115) 11/11/22 05:30 Calculated Osmolality 287 mOsm/kg (285-295) 11/11/22 05:30 Calcium 8.5 mg/dL (8.5-10.5) 11/11/22 05:30 Magnesium 2.1 mg/dL (1.7-2.3) 11/11/22 05:30 Total Bilirubin 0.6 mg/dL (0.15-1.2) 11/11/22 05:30 AST 20 U/L (0-40) 11/11/22 05:30 ALT 13 U/L (0-41) 11/11/22 05:30 Alkaline Phosphatase 64 U/L (40-130) 11/11/22 05:30 Total Protein 5.8 g/dL (6.6-8.7) L 11/11/22 05:30 Albumin 3.7 g/dL (3.5-5.2) 11/11/22 05:30 Globulin 2.1 g/dL (1.3-4.6) 11/11/22 05:30 Gastric Occult Blood Positive (Negative) H 11/10/22 10:04 Blood Type A Positive 11/10/22 10:10 Rho(D) Type Positive 11/10/22 10:10 Antibody Screen Negative 11/10/22 10:10 Vitals Last Vital Signs Temp 97.6 F 11/11/22 10:45 Pulse 67 11/11/22 10:45 Resp 18 11/11/22 10:45 BP 102/65 11/11/22 10:45 Pulse Ox 100 11/11/22 10:45 O2 Del Method Room Air 11/11/22 10:45 Discharge Plan Discharge Patient Disposition: Home Condition: Stable Prescriptions: New omeprazole 40 mg capsule,delayed release(DR/EC) 40 mg PO BID Qty: 60 6RF Rx Instructions: take one po bid for 60 days then take one a day sucralfate [Carafate] 1 gram tablet 1 g PO Q6H 56 Days Qty: 224 0RF Rx Instructions: mix in 30 cc of warm water to make solution and take po QID No Action No Known Home Medications Discharge Orders: Discharge Order (Routine); Ordered 11/11/22 Ordered By: Lai Millan Referrals: Joseluis Norton DO [Physician] - 11/18/22 1:50 pm (DR RASHEL SOLO EGD ON PATIENT ) Discharge Diet: As Directed Discharge Activity: Resume usual activity Patient Instructions: GI Discharge Instructions, Opioid Safety Activity Restrictions/Additional Instructions: Patient must avoid food and liquids with acid like citric acid in orange juice/tomato juice/pineapple juice/lemonade. Avoid phosphoric and citric acid in soda like coke and sprite. Avoid acid in coffee and avoid excessive caffeine which will stimulate stomach acid production. No alcohol. No smoking or nicotine. Avoid aspirin and NSAID and steroids like prednisone. Avoid spicy food which can stimulate stomach acid and stay on bland food. Call for blood in stool or dark black stool. Be aware that black stools can be cause by taking iron supplementation or taking pepto bismol or eating blue or black berries. Stay away from any strong blood thinners. RTC in a week to go over path result to see if has H. pylori. Arrange follow-up with primary care provider 3 to 5 days Stop smoking No alcohol Discharge Attestations Time Spent in Discharge Care*: greater than 30 min Quality Metrics Clinical Quality Measures [ No reported AMI, CVA or VTE this stay] Coding Level of Care Code 95979 Total time (in minutes) for Discharge: 39 Diagnoses GI bleed K92.2
--- NOTE | 2022-11-11 16:40 | ANE.PACU2 ---
Inpatient post-anesthesia follow up: Airway intact: Yes Vital signs: Temperature 97.6 F Pulse Rate 67 Respiratory Rate 18 Blood Pressure 102/65 Pulse Oximetry 100 Oxygen Delivery Me thod [ Room Air Current Rate & Del kimberly] Oxygen Delivery Me thod Room Air Oxygen Flow Rate Fraction of Inspir ed Oxygen Hydration adequate: Yes Nausea and vomiting: No Pain level: 2 Mental status: Baseline
[2022-11-12 10:45] LABS: H. Pylori / CLO Test Negative
== END 2022-11-11 13:19 | disposition home or self-care (01) ==
LOC: ER 11:00 → MEDSURG 12:32
PROVIDERS: Specialist; Admitting Provider Internal Medicine; Emergency Provider Family Medicine; Visit Provider Internal Medicine
PROC: 0DJ08ZZ Inspection of Upper Intestinal Tract, Via Natural or Artificial Opening Endoscopic (ICD-10-PCS; CPT 43235; principal; 2022-11-11 08:20)
DX: K92.2 Gastrointestinal hemorrhage, unspecified (principal); B96.81 Helicobacter pylori [H. pylori] as the cause of diseases classified elsewhere; K29.20 Alcoholic gastritis without bleeding
CPT/HCPCS: 36415; 43239; 74177; 80053; 82271; 83735; 85014; 85018; 85025; 85610; 85730; 86850; 86900; 87077; 88305; 88342; 96361; 96374; 96375; 96376; 99285; C9113; G0378; J2250; J2405; J2704; J3490; J7030; Q9967

== ENCOUNTER 2024-05-14 18:46 | Emergency (ER) | payer OTHER, SELFPAY ==
[2024-05-14 18:49] VITALS: BP 114/64; PULSE 66; RESP 18; TEMP 36.5; O2SAT 98; BMI 27.5
--- NOTE | 2024-05-14 19:20 | XRR_ITS ---
PROCEDURE INFORMATION: Exam: XR Left Hand Exam date and time: 05/14/2024 7:27 PM Age: 38 years old Clinical indication: Injury or trauma; Puncture; Patient HX: Dog bite to left hand TECHNIQUE: Imaging protocol: Radiologic exam of the left hand. Views: 3 or more views. COMPARISON: No relevant prior studies available. FINDINGS: Bones/joints: Normal. Soft tissues: Normal. XR/XR hand LT min 3V* [id number] IMPRESSION: No acute findings.
--- NOTE | 2024-05-14 19:20 | XRR_ITS ---
PROCEDURE INFORMATION: Exam: XR Right Hand Exam date and time: 05/14/2024 7:29 PM Age: 38 years old Clinical indication: Injury or trauma; Puncture; Right; Patient HX: Dog bite to RT hand TECHNIQUE: Imaging protocol: Radiologic exam of the right hand. Views: 3 or more views. COMPARISON: No relevant prior studies available. FINDINGS: Bones/joints: Normal. Soft tissues: Normal. XR/XR hand RT min 3V* [id number] IMPRESSION: No acute findings.
--- NOTE | 2024-05-14 19:20 | XRR_ITS ---
PROCEDURE INFORMATION: Exam: XR Left Ribs with PA Chest Exam date and time: 05/14/2024 7:31 PM Age: 38 years old Clinical indication: Injury or trauma; Fall; Rib area, left side; Blunt trauma; Patient HX: Patient attacked by pitbull and fell to ground on left side. C/O left rib pain. TECHNIQUE: Imaging protocol: Radiologic exam of the left ribs with PA chest. Views: 3 views COMPARISON: CR XR chest 1V portable [id number] 09/01/2021 6:20 AM FINDINGS: Lungs: Unremarkable. No consolidation. Pleural spaces: Unremarkable. No pleural effusion. No pneumothorax. Heart/Mediastinum: Unremarkable. No cardiomegaly. Bones/joints: Unremarkable. XR/XR ribs LT mn 3V w CXR1V [id number] IMPRESSION: No acute findings.
[2024-05-14] MEDS: tetanus-dipt-pertussis 0.5 mL SDV IM (19:27)
--- NOTE | 2024-05-14 19:42 | PC.NURSE ---
pt cleansed hands and lacerations to hands with warm water and soap in sink. areas small and left open to air at this time.
--- NOTE | 2024-05-14 20:32 | ED_ITS ---
HPI - Animal Bite General: Chief Complaint: Animal Bite Stated Complaint: DOG BITE Time Seen by Provider: 05/14/24 19:12 History of Present Illness: Patient is a 38-year-old kndzl-llsl-hdxrzuls male that presents to the emergency department with several abrasions/bite. Patient reports he was working in his front yard when a neighbor dog ran at him and started fighting. Patient was able to fight the dog away. During the scuffle, he fell into some plantars striking the left side of his chest wall. He was able to get up and call for help. He is not up-to-date on tetanus He denies any chronic medical conditions Associated symptoms: Deny chills, fever(s) or headache(s) Related Data Previous Rx's Medication Instructions Recorded rimegepant 75 mg disintegrating 75 mg PO .every other day #15 tabs 04/13/24 tablet (Nurtec ODT) Allergies Allergy/AdvReac Type Severity Reaction Status Date / Time No Known Allergies Allergy Verified 04/13/24 13:15 Review of Systems General: Reports: 10 or more systems reviewed and unremarkable except in HPI and below Const: Denies: fever(s), chills, change in appetite, change in weight, fatigue or malaise Eyes: Denies: change in vision, eye discomfort, eye discharge or eye redness ENMT: Denies: throat pain, enlarged tonsils, odynophagia, hoarseness, ear or mastoid pain, ear discharge, change in hearing, tinnitus, nasal discharge, nasal congestion, post nasal drip or sinus pain Card: Denies: chest pain, palpitations, irregular heart rhythm, edema, dyspnea on exertion, orthopnea or leg pain with exertion Resp: Denies: dyspnea, productive cough, non-productive cough, wheezing, stridor or chest congestion GI: Denies: abdominal pain, nausea, vomiting, dysphagia, diarrhea, constipation, bloating, GI cramping or hematochezia : Denies: flank pain, dysuria, urinary frequency, urinary urgency, urinary hesitancy, oliguria or hematuria Musc: Denies: neck pain, back pain, extremity pain, joint pain, joint swelling, joint redness, joint warmth or muscle weakness Skin/Breast: Denies: rash, pruritus, erythema, photosensitivity or new lesions Neuro: Denies: headache(s), numbness in extremities, weakness in extremities, sensory changes, lack of coordination, difficulty walking, frequent falls, dizziness, confusion, Slurred speech present, difficulty communicating thoughts, seizure-like activity or involuntary movements Endo: Denies: polyuria, polydipsia or tired all the time Raad/Lymph: Denies: easy bruising or easy bleeding PFSH ED PFSH: Medical History No significant past medical history Surgical History No significant past surgical history Family History Mother CAD (coronary artery disease) Social History Smoking and tobacco/nicotine status: current every day tobacco/nicotine user Alcohol intake: former Substance/Drug Use: never Physical Exam Const: COMMON NORMALS: no acute distress, patient oriented x3 and alert GENERAL APPEARANCE: cooperative ORIENTATION/CONSCIOUSNESS: Yes awake, Yes oriented to person, Yes oriented to place and Yes oriented to time HENMT: COMMON NORMALS: normocephalic and atraumatic HEAD & SCALP: normocephalic and atraumatic FACE & SINUS: normal facial exam MOUTH: Normal oral and palatal mucosa present THROAT: posterior oropharynx normal Eye: COMMON NORMALS: Equal, round and reactive pupils present, EOMs intact bilaterally, conjunctivae normal and no scleral icterus GENERAL EYE: appearance normal, both eyes and all related structures ALIGNMENT: Yes alignment normal PERIORBITAL: periorbital findings normal CONJUNCTIVA: Yes conjunctivae normal PUPIL: Yes Equal, round and reactive pupils present Neck/C-Spine: COMMON NORMALS: full ROM GENERAL: Yes normal visual inspection Chest: COMMONS NORMALS: normal inspection of the chest Breast/axilla inspection: Yes no chest deformity, asymmetry, normal contours, no nodules, masses, tenderness Resp: COMMON NORMALS: normal respiratory effort, No retractions and No use of accessory muscles EFFORT & INSPECTION: Yes able to speak in complete sentences and Yes symmetric chest movement Cardio: COMMON NORMALS: regular rate and Peripheral pulses 2+ throughout RATE: regular rate PERIPHERAL PULSES: Peripheral pulses 2+ throughout GI: COMMON NORMALS: non-tender INSPECTION: Yes normal to inspection RECTAL EXAM: Yes deferred Extremity: COMMON NORMALS: normal to inspection GENERAL: Yes normal exam except as noted Neuro: COMMON NORMALS: patient oriented x3 SENSORIUM/ORIENTATION: Yes alert, Yes oriented to person, Yes oriented to place and Yes oriented to time CRANIAL NERVES: Yes CN normal except as noted Psych: COMMON NORMALS: mental status grossly normal, Normal thought process present, cooperative, activity/motor behavior normal, denies homicidal ideation and denies suicidal ideation THOUGHT PROCESS: Normal thought process present Skin: COMMON NORMALS: no rashes or lesions noted, no wounds and turgor normal GENERAL SKIN EXAM: no rashes or lesions noted and turgor normal OTHER: Superficial abrasions scratches to the dorsal aspect of the hand. No pene trating bites. Course Vital Signs: Vital signs: Vital Signs Temperature 97.7 F 05/14/24 18:49 Pulse Rate 66 05/14/24 18:49 Respiratory Rate 18 05/14/24 18:49 Blood Pressure 114/64 05/14/24 18:49 Pulse Oximetry 98 05/14/24 18:49 Oxygen Delivery Me thod Room Air 05/14/24 18:49 MDM - Animal Bite Medical Decision Making Patient underwent XR imaging of the left lateral ribs, chest, bilateral hands. No fractures identified. No retained foreign bodies. Patient is going to discharge home. We updated his tetanus. Offered rabies but he declines. XR interpretation done by ED provider, pending radiology final review Discharge Plan Discharge Patient Disposition: Home Clinical Impression: Dog bite Condition: Stable Prescriptions: No Action Nurtec ODT 75 mg tablet,disintegrating 75 mg PO .every other day Qty: 15 2RF Discharge Orders: Discharge ED (Routine); Ordered 05/14/24 Ordered By: Antionette Pate Discharge Diet: Advance as tolerated Discharge Activity: Resume usual activity Patient Instructions: Pain Management, Abrasion (ED), Animal Bite (ED) Activity Restrictions/Additional Instructions: Please follow-up with primary care as needed for reevaluation of todays complaints please return the emergency department for new concerning or worsen ing symptoms. Coding Level of Care Code ED Client Evaluator for Faisal Cintron
[2024-05-14 20:45] VITALS: BP 117/90; PULSE 83; O2SAT 94
== END 2024-05-14 20:46 | disposition home or self-care (01) ==
PROVIDERS: Emergency Provider Nurse Practitioner
DX: S61.451A Open bite of right hand, initial encounter (principal); W54.0XXA Bitten by dog, initial encounter; Z72.0 Tobacco use
CPT/HCPCS: 71101; 73130; 90471; 90715; 99284

== ENCOUNTER → 2024-06-12 09:10 | Outpatient (BNVA) | payer OTHER, SELFPAY | PROVIDERS: Referring Provider Psychiatry & Neurology Neurology; Visit Provider Anesthesiology Pain Medicine | DX: M54.2 Cervicalgia (principal); G89.29 Other chronic pain; M54.50 Low back pain, unspecified; M54.16 Radiculopathy, lumbar region; F07.81 Postconcussional syndrome; M79.18 Myalgia, other site | CPT/HCPCS: 72040; 72110 ==

== ENCOUNTER 2024-06-23 08:31 | Outpatient (CLI) | payer OTHER, SELFPAY ==
--- NOTE | 2024-06-23 08:45 | MR_ITS ---
WS: [id number] MRI LUMBAR SPINE NONCONTRAST HISTORY: M54.16 - Radiculopathy, lumbar region COMPARISON: None available. TECHNIQUE: Sagittal and axial multisequence imaging is submitted. Normal lumbar alignment with no compression fractures or marrow edema. Disc spaces and vertebral body heights are well-preserved. Conus terminates normally at L1. L1-L2: Normal. L2-L3: Ligamentum flavum hypertrophy and a small amount of fluid in the facet joints. No stenosis. L3-L4: Mild annular disc bulging with mild ligamentum flavum and facet arthritis. No significant stenosis. L4-L5: Mild annular disc bulging with ligamentum flavum and facet arthritis. There is mild disc encroachment upon the traversing L5 nerve roots with no displacement. Bilateral foraminal disc osteophyte complexes encroaching upon the exiting L4 nerve roots. Mild bilateral subarticular recess and bilateral foraminal stenosis. L5-S1: RIGHT paracentral disc protrusion contacts the RIGHT S1 nerve root. No significant displacement of the nerve root. Mild facet arthritis. Paravertebral soft tissues are negative. MR/MR lumbar spine wo con* [id number] IMPRESSION: 1. Shallow RIGHT paracentral disc protrusion contacts the RIGHT S1 nerve root. 2. L4-5: Mild bilateral subarticular recess and foraminal stenosis with mild e ncroachment upon the L4 and L5 nerve roots. No high-grade stenosis. 3. No lumbar spine fracture.
== END 2024-06-23 08:32 | disposition home or self-care (01) ==
PROVIDERS: Visit Provider Nurse Practitioner Family
DX: M54.16 Radiculopathy, lumbar region (principal); M48.061 Spinal stenosis, lumbar region without neurogenic claudication; R93.7 Abnormal findings on diagnostic imaging of other parts of musculoskeletal system; M51.369 Other intervertebral disc degeneration, lumbar region without mention of lumbar back pain or lower extremity pain; M47.896 Other spondylosis, lumbar region; M25.78 Osteophyte, vertebrae; M51.27 Other intervertebral disc displacement, lumbosacral region; M47.897 Other spondylosis, lumbosacral region
CPT/HCPCS: 72148

== ENCOUNTER 2024-11-27 03:35 | Observation (INO) | payer SELFPAY ==
[2024-11-27] VITALS (17 sets, daily range): BP systolic 93–141; BP diastolic 61–98; PULSE 63–167; RESP 14–20; TEMP 36.4–36.6; O2SAT 95–100; BMI 25.8
--- OUTSIDE RECORDS SUMMARY | 2024-11-27 03:40 | XMS_ITS | Clinical Summary ---
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 Max Daily Amount: 6 Tablets 25 Tablet 02/02/2017 Active ciprofloxacin HCl (CIPRO) 500 mg tablet Take 1 Tablet (500 mg) by mouth 2 times daily. 20 Tablet None 02/02/2017 Active metroNIDAZOLE (FLAGYL) 500 mg tablet Take 1 Tablet (500 mg) by mouth 3 times daily. 30 Tablet None 02/02/2017 Active Active Problems No known active problems Social History Tobacco Use Types Packs/Day Years Used Date Smoking Tobacco: Every Day Cigars Smokeless Tobacco: Never Alcohol Use Standard Drinks/Week Comments Yes 0 (1 standard drink = 0.6 oz pur e alcohol) Sex and Gender Information Value Date Recorded Sex Assigned at Not on file Legal Sex Male 6:08 PM CDT Gender Identity Not on file Sexual Orientation Not on file Last Filed Vital Signs Vital Sign Reading Time Taken Comments Blood Pressure 122/55 02/02/2017 5:38 PM CDT Pulse 70 02/02/2017 2:37 PM CDT Temperature 36.6 C (97.8 F) 02/02/2017 9:33 AM CDT Respiratory Rate 16 02/02/2017 5:38 PM CDT Oxygen Saturation 100% 02/02/2017 5:38 PM CDT Inhaled Oxygen Concentration - - Weight 87.1 kg (192 lb) 02/02/2017 11:57 AM CDT Height 177.8 cm (5' 10 ) 02/02/2017 11:57 AM CDT Body Mass Index 27.55 02/02/2017 11:57 AM CDT Plan of Treatment Health Maintenance Due Date Last Done Comments HPV VACCINES (1 - Male 3-dose series) 2000 DTAP/TDAP/TD VACCINES (1 - Tdap) 2004 HEPATITIS B VACCINES (1 of 3 - 19+ 3-dose series) 12/2004 INFLUENZA VACCINE (#1) 2024
--- OUTSIDE RECORDS SUMMARY | 2024-11-27 03:40 | XMS_ITS | Clinical Summary ---
Author Organization [employer] 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 Max Daily Amount: 6 Tablets 25 Tablet 0 02/02/2017 Active metroNIDAZOLE (FLAGYL) 500 mg tablet Take 1 Tablet (500 mg) by mouth 3 times daily. 30 Tablet None 02/02/2017 Active ciprofloxacin HCl (CIPRO) 500 mg tablet Take 1 Tablet (500 mg) by mouth 2 times daily. 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 Gender Identity Not on file Sexual Orientation Not on file Last Filed Vital Signs Vital Sign Reading Time Taken Comments Blood Pressure 122/55 02/02/2017 5:38 PM CDT Pulse 70 02/02/2017 2:37 PM CDT Temperature 36.6 C (97.8 F) 02/02/2017 9:33 AM CDT Respiratory Rate 16 02/02/2017 5:38 PM CDT Oxygen Saturation - - Inhaled Oxygen Concentration - - Weight 87.1 kg (192 lb) 02/02/2017 11:57 AM CDT Height 177.8 cm (5' 10 ) 02/02/2017 11:57 AM CDT Body Mass Index 27.55 02/02/2017 11:57 AM CDT Plan of Treatment Health Maintenance Due Date Last Done Comments DTAP/TDAP/TD VACCINES (1 - Tdap) 2004 HEPATITIS B VACCINES (1 of 3 - 19+ 3-dose series) 2004 INFLUENZA VACCINE (#1) 2024 HPV VACCINES Aged Out No longer eligi ble based on patient's age to complete this topic
--- NOTE | 2024-11-27 03:41 | XRR_ITS ---
PROCEDURE INFORMATION: Exam: XR Chest Exam date and time: 11/27/2024 4:01 AM Age: 39 years old Clinical indication: Shortness of breath; Chest pressure; Chest pain with SOB. TECHNIQUE: Imaging protocol: Radiologic exam of the chest. Views: 1 view. COMPARISON: CR XR ribs LT mn 3V w CXR1V [id number] 05/14/2024 7:31 PM FINDINGS: Lungs: Unremarkable. No consolidation. Pleural spaces: Unremarkable. No pleural effusion. No pneumothorax. Heart/Mediastinum: Unremarkable. No cardiomegaly. Bones/joints: Unremarkable. XR/XR chest 1V portable [id number] IMPRESSION: No acute cardiopulmonary process.
--- NOTE | 2024-11-27 03:44 | ECG_ITS ---
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 Measurements Intervals [place] Rate: 154 P: 0 MS: 0 QRS: 78 QRSD: 85 T: 66 QT: 268 QTc: 429 Interpretive Statements ATRIAL FIBRILLATION WITH RAPID VENTRICULAR RESPONSE MODERATE ST DEPRESSION [0.05+ mV ST DEPRESSION] CRITICAL TEST RESULT Compared to ECG 09/01/2021 08:13:33 ST (T wave) deviation now present Sinus bradycardia no longer present Early repolarization no longer present Electronically Signed On 11-27-2024 17:00:38 CDT by Cuauhtemoc Serrano M.D. [email or web address] [id number]
[2024-11-27 04:00] LABS: Hematocrit 41.4 % (37-53); Hemoglobin 14.10 g/dL (11.27-16.99); Mean Corpuscular HGB Conc 34.1 g/dL (30-55); Mean Corpuscular Hemoglobin 30.5 pg (27-33); Mean Corpuscular Volume 89.4 fl (82-101); Nucleated Red Blood Cells % 0 %; Platelet Count 313 10^3/cmm (157-399); Red Blood Count 4.63 10^6/uL (3.85-5.65); White Blood Count 6.30 10^3/uL (3.29-11.43)
[2024-11-27] MEDS: dilTIAZem 5 mg/mL SDV 5 mL 10 MG IVP (04:03)
[2024-11-27] MEDS: LORazepam 1 MG/0.5 ML injection 2 MG IVP (04:08)
[2024-11-27 04:13] LABS: INR 0.84 (0.8-1.2); Prothrombin Time 12.20 SECONDS (12.1-14.9)
[2024-11-27 04:14] LABS: Partial Thromboplastin Time 23.9 SECONDS (23.9-36.7)
[2024-11-27 04:20] LABS: Lactic Sepsis W/Reflex 2.3 mmol/L (0.5-2.2)
[2024-11-27 04:30] LABS: Alanine Aminotransferase 22 U/L (0-41); Albumin Level 4.3 g/dL (3.5-5.2); Alkaline Phosphatase 76 U/L (40-130); Anion Gap 26.3 (5-19); Aspartate Amino Transferase 43 U/L (0-40); Blood Urea Nitrogen 11 mg/dL (6-20); Calcium 9.1 mg/dL (8.5-10.5); Carbon Dioxide 17 mmol/L (22-29); Chloride 95 mmol/L (98-107); Creatinine Clr Calc Pharmacy 119.1719; Globulin 3.0 g/dL (1.3-4.6); Glucose 148 mg/dL (65-115); Lipase 33 U/L (13-60); NT Pro B Type Natriuretic Pept < 36 pg/mL (0-125); Osmolality Calculated 280 mOsm/kg (285-295); Potassium 4.3 mmol/L (3.5-5.1); Sodium 134 mmol/L (136-145); Total Protein 7.3 g/dL (6.6-8.7)
[2024-11-27 04:31] LABS: Alcohol Level 10 mg/dL (0-10)
[2024-11-27 04:41] LABS: Reflex Lactate Order REFLEX LACTIC ORDERD
[2024-11-27 04:57] LABS: Troponin(5th) Baseline < 6 ng/L (0-15)
--- NOTE | 2024-11-27 05:05 | P.HP_ITS ---
Providers/Chief Complaint 2 Chief Complaint: CP, Heart beating fast, hard to breath History of Present Illness Brock Mueller is a 39 year old patient with a history of post-concussive syndrome and migraine headaches presenting to the ED after awakening around 2 AM with sudden palpitations, chest pain, shortness of breath, and marked anxiety. EMS noted an initial heart rate of 167 bpm in atrial fibrillation. The patient reports alcohol intake yesterday (beer, unspecified quantity) but denies smoking or recreational drug use. Earlier in the day he experienced vomiting, near- syncope in the bathroom, disorientation, profuse sweating, and staggering gait. He has intermittent right molar pain for which he has taken [id number] pain relievers. No fever, chills, diarrhea, leg swelling, or known sleep apnea. Past episodes include a prior ED visit for a dog bite (treated with Augmentin). No history of hypertension, diabetes, stroke, or similar arrhythmia. Review of Systems 2 Const: Reports: malaise; Denies: fever(s), chills or body aches ENMT: Denies: throat pain Card: Reports: palpitations and pre-syncope; Denies: chest pain, edema or dyspnea on exertion Resp: Denies: dyspnea, productive cough, change in phlegm color or hemoptysis GI: Reports: nausea and vomiting; Denies: abdominal pain, diarrhea, constipation, hematochezia or melena : Denies: flank pain, difficulty urinating, urinary frequency or hematuria Musc: Denies: back pain, joint swelling or joint redness Skin/Breast: Denies: rash or new lesions Neuro: Denies: headache(s) or confusion Medications/Allergies Home Medications ?Medication ?Instructions ?Recorded ?Confirmed ?Last Taken ?Type gabapentin 300 mg capsule 300 mg PO TID #90 caps 06/1210/16/24 Unknown Rx tizanidine 4 mg capsule 4 mg PO BID PRN muscle spast icity 06/12/24 10/16/24 Unknown Rx #60 caps rimegepant 75 mg disintegrating 75 mg PO ONCE PRN migr liliana 10/16/24 10/16/24 Unknown Rx tablet headache #8 tabs Allergies Allergy/AdvReac Type Severity Reaction Status Date / Time No Known Allergies Allergy Verified 06/20/24 13:18 PFSH Acute 2 PFSH: Medical History No significant past medical history Surgical History No significant past surgical history Family History Mother CAD (coronary artery disease) Social History (Updated 11/27/24 @ 05:14 by Chuck Machado MD) Smoking and tobacco/nicotine status: former use of tobacco/nicotine Alcohol intake: current Alcohol intake frequency: holidays/special occasions only Substance/Drug Use: never Vitals/I&O/Wt Last Vital Signs Temp 97.9 F 11/27/24 03:47 Pulse 126 H 11/27/24 04:11 Resp 17 11/27/24 04:11 BP 114/86 11/27/24 04:11 Pulse Ox 99 11/27/24 04:11 O2 Del Method Room Air 11/27/24 04:11 Weight last 48 hrs Weight 81.647 kg Physical Exam 2 Narrative: Accompanied by female family member Const: COMMON NORMALS: patient oriented x3 and alert GENERAL APPEARANCE: c ooperative ORIENTATION/CONSCIOUSNESS: Yes awake HENMT: COMMON NORMALS: oropharynx normal OTHER: Posterior right molar with caries and decay, without surrounding gingivitis or periodontitis, no gum or jaw swelling, no palpable lymph nodes in the area. Neck/C-Spine: COMMON NORMALS: no JVD Resp: COMMON NORMALS: normal respiratory effort and clear to auscultation bilaterally AUSCULTATION: clear to auscultation bilaterally Cardio: COMMON NORMALS: no JVD, regular rhythm, S1 normal heart sound present, S2 normal heart sound present and No murmurs present (Cardio) RATE: t achycardic RHYTHM: abnormal rhythm irregularly irregular HEART SOUNDS: S1 normal heart sound present and S2 normal heart sound present GI: COMMON NORMALS: Normal to inspection, nondistended, normoactive bowel sounds present, Soft to palpation and non-tender PALPATION: Yes Soft to palpation Extremity: COMMON NORMALS: no joint enlargement and no pedal edema Neuro: COMMON NORMALS: patient oriented x3 and moves all extremities S ENSORIUM/ORIENTATION: Yes alert Skin: COMMON NORMALS: no rashes or lesions noted GENERAL SKIN EXAM: no rashes or lesions noted Data 11/27/24 03:50 11/27/24 03:50 A&P Assessment and plan 1. Paroxysmal atrial fibrillation with RVR: New-onset atrial fibrillation with rapid ventricular response : New presentation of AFib at 167 bpm; HR now 114 bpm after Cardizem, fluids, Ativan; no prior AFib history and stroke-risk comorbidities. Reviewed vitals, CBC, INR, CMP, lactic acid, troponin, NT proBNP, lipase, EtOH, chest x-ray, EKG, ED provider note, discussed with ED provider. - Admit to cardiac step-down unit and continuous telemetry monitoring. - Continue rate control with Cardizem drip due to persistent AFib with RVR. Risk of hypotension. - Start aspirin for stroke prophylaxis. - Obtain TSH - When heart rate is controlled, obtain echocardiogram to evaluate for valvular disease. - Check viral swab for potential infectious trigger. 2. Metabolic acidosis: Anion gap metabolic acidosis bicarb down to 17, gap 26.3. Glucose 148, no history of diabetes. Check A1c. Check UA for urine ketones, check serum ketones. Noted lactic acidosis 2.3. Had vomiting earlier today. Otherwise afebrile without leukocytosis without signs of sepsis. With suspected dehydration after vomiting, [place]. Continue IV fluid. Monitor for risk of fluid overload. 3. Nausea and vomiting: Episodes of vomiting preceding ED arrival, possibly viral or related to arrhythmia/alcohol. - Provide anti-emetic as needed. - Include viral swab (shared with AFib work-up) to rule out viral illness. - Trial of clear liquid consistent carb diet 4. Pain of molar: Chronic right molar discomfort; no visible swelling or systemic infection signs. - Monitor for swelling, increasing pain, fever, or chills. - Advise follow-up with dentist for definitive evaluation and possible extraction or drainage. - Consider antibiotics if signs of infection develop. Plan: Glucose elevated: 148. Check A1c. No reported history of diabetes. PDMP PDMP Reviewed: Not Reviewed Attestations 2 Medical Necessity Statement*: Place in observation for additional assessment management of new onset atrial fibrillation with RVR. and High MDM includes amount and/or complexity of data reviewed/ordered [ previous or external records, resulted lab(s)/test(s), ordered lab(s)/test(s) and other healthcare professional discussion] and described risk of complication, morbidity or mortality of management as documented Diagnoses Paroxysmal atrial fibrillation with RVR I48.0 Metabolic acidosis E87.20 Nausea and vomiting R11.2 Pain of molar K08.89
[2024-11-27 05:15] LABS: Ketone (Acetest) Serum Negative (Negative)
--- NOTE | 2024-11-27 05:28 | W.ED.CHESTPA ---
HPI - Chest Pain General: Chief Complaint: ER Hold Stated Complaint: CP, Heart beating fast, hard to breath Time Seen by Provider: 11/27/24 03:41 History of Present Illness: 39-year-old male with no chronic medical history presented from home for sudden onset palpitations, chest pressure, and shortness of breath that began this morning [place]. Patient reports awakening feeling overheated, drank orange juice, then became unsteady and noted an audible booming heartbeat. Symptoms persisted for roughly one hour before emergency department arrival. Denies illicit drug use; specifically denies methamphetamine. Also complains of a painful oral abscess causing facial tenderness; has been taking an dyip-axg-wjqsnmc pain reliever without antibiotics. No other acute complaints reported. Related Data Previous Rx's ?Medication ?Instructions ?Recorded gabapentin 300 mg capsule 300 mg PO TID #90 caps 06/12/24 tizanidine 4 mg capsule 4 mg PO BID PRN muscle spasticity 06/12/24 #60 caps rimegepant 75 mg disintegrating 75 mg PO ONCE PRN migraine 10/16/24 tablet headache #8 tabs Allergies Allergy/AdvReac Type Severity Reaction Status Date / Time No Known Allergies Allergy Verified 06/20/24 13:18 [facility] ED PFSH: Medical History (Updated 11/27/24 @ 05:30 by Bill Castillo MD) No significant past medical history Surgical History No significant past surgical history Family History Mother CAD (coronary artery disease) Social History (Updated 11/27/24 @ 05:14 by Chuck Machado MD) Smoking and tobacco/nicotine status: former use of tobacco/nicotine Alcohol intake: current Alcohol intake frequency: holidays/special occasions only Substance/Drug Use: never Physical Exam Const: COMMON NORMALS: no acute distress, patient oriented x3 and alert HENMT: COMMON NORMALS: normocephalic and atraumatic HEAD & SCALP: normocephalic and atraumatic Eye: COMMON NORMALS: Equal, round and reactive pupils present, EOMs intact bilaterally and no scleral icterus PUPIL: Yes Equal, round and reactive pupils present Chest: OTHER: no chest pressure at time of my exam. Resp: COMMON NORMALS: normal respiratory effort and No retractions Cardio: OTHER: Irregularly irregular, tachycardic heart. No murmur. GI: COMMON NORMALS: Normal to inspection, nondistended, normoactive bowel sounds present, Soft to palpation and non-tender PALPATION: Yes Soft to palpation Neuro: COMMON NORMALS: patient oriented x3 SENSORIUM/ORIENTATION: Yes alert Skin: COMMON NORMALS: no rashes or lesions noted GENERAL SKIN EXAM: no rashes or lesions noted OTHER: Mildly diaphoretic Course Vital Signs: Vital signs: Vital Signs Temperature 97.9 F 11/27/24 03:47 Pulse Rate 126 H 11/27/24 04:11 Respiratory Rate 17 11/27/24 04:11 Blood Pressure 114/86 11/27/24 04:11 Pulse Oximetry 99 11/27/24 04:11 Oxygen Delivery Me thod Room Air 11/27/24 04:11 MDM - Chest Pain Medical Decision Making In summary, patient is a generally well-appearing 39-year-old male seen for atrial fibrillation with RVR which is new as far as he knows. [place]. He denies drug use. He has no prior cardiac history. He was started on Lovenox and Cardizem and IV fluids and will be admitted to the hospitalist service for further observation care and diagnostics and rate control. Lab Data 11/27/24 03:50 11/27/24 03:50 Radiology Impressions Chest X-Ray 11/27/24 03:41 IMPRESSION: No acute cardiopulmonary process. Laboratory Results WBC 6.30 10^3/uL (3.29-11.43) 11/27/24 03:50 RBC 4.63 10^6/uL (3.85-5.65) 11/27/24 03:50 Hgb 14.10 g/dL (11.27-16.99) 11/27/24 03:50 Hct 41.4 % (37-53) 11/27/24 03:50 MCV 89.4 fl (82-101) 11/27/24 03:50 MCH 30.5 pg (27-33) 11/27/24 03:50 MCHC 34.1 g/dL (30-55) 11/27/24 03:50 RDW 14.2 % (12.1-15.1) 11/27/24 03:50 Plt Count 313 10^3/cmm (157-399) 11/27/24 03:50 MPV 8.5 fL (7.4-10.4) 11/27/24 03:50 Neut % (Auto) 65.4 % 11/27/24 03:50 Lymph % (Auto) 23.8 % 11/27/24 03:50 Carter % (Auto) 7.9 % 11/27/24 03:50 Eos % (Auto) 1.9 % 11/27/24 03:50 Baso % (Auto) 0.8 % 11/27/24 03:50 Neut # (Auto) 4.12 10^3/uL (1.8-7.7) 11/27/24 03:50 Lymph # (Auto) 1.5 10^3/uL (0.8-4.8) 11/27/24 03:50 Carter # (Auto) 0.5 10^3/uL (0.2-0.9) 11/27/24 03:50 Eos # (Auto) 0.1 10^3/uL (0.0-0.8) 11/27/24 03:50 Baso # (Auto) 0.1 10^3/uL (0.0-0.1) 11/27/24 03:50 Nucleated RBC % (auto) 0 % 11/27/24 03:50 Nucleated RBCs # 0.0 /100WBC 11/27/24 03:50 PT 12.20 SECONDS (12.1-14.9) 11/27/24 03:50 INR 0.84 (0.8-1.2) 11/27/24 03:50 APTT 23.9 SECONDS (23.9-36.7) 11/27/24 03:50 Sodium 134 mmol/L (136-145) L 11/27/24 03:50 Potassium 4.3 mmol/L (3.5-5.1) 11/27/24 03:50 Chloride 95 mmol/L (98-107) L 11/27/24 03:50 Carbon Dioxide 17 mmol/L (22-29) L 11/27/24 03:50 Anion Gap 26.3 (5-19) H 11/27/24 03:50 BUN 11 mg/dL (6-20) 11/27/24 03:50 Creatinine 0.9 mg/dL (0.7-1.2) 11/27/24 03:50 GFR Calculation 113.7 mL/min (90-130) 11/27/24 03:50 Glucose 148 mg/dL (65-115) H 11/27/24 03:50 Calculated Osmolality 280 mOsm/kg (285-295) L 11/27/24 03:50 Lactic Acid 2.3 mmol/L (0.5-2.2) H 11/27/24 03:50 Calcium 9.1 mg/dL (8.5-10.5) 11/27/24 03:50 Total Bilirubin 0.5 mg/dL (0.15-1.2) 11/27/24 03:50 AST 43 U/L (0-40) H 11/27/24 03:50 ALT 22 U/L (0-41) 11/27/24 03:50 Alkaline Phosphatase 76 U/L (40-130) 11/27/24 03:50 Troponin T Baseline < 6 ng/L (0-15) 11/27/24 03:50 NT-Pro-B Natriuret Pep < 36 pg/mL (0-125) 11/27/24 03:50 Total Protein 7.3 g/dL (6.6-8.7) 11/27/24 03:50 Albumin 4.3 g/dL (3.5-5.2) 11/27/24 03:50 Globulin 3.0 g/dL (1.3-4.6) 11/27/24 03:50 Lipase 33 U/L (13-60) 11/27/24 03:50 Ethyl Alcohol 10 mg/dL (0-10) 11/27/24 03:50 Serum Ketones Negative (Negative) 11/27/24 03:50 All radiology interpretation(s) finalized by discharge EKG Data EKG 1: Interpretation: Time?343?atrial fibrillation with RVR, rate of 154, no ST segment elevation or depression, QTc = 355 Discharge Plan Discharge Patient Disposition: Admitted As Inpatient Admit Provider: Chuck Machado Clinical Impression: Atrial fibrillation with RVR Condition: Stable Coding Level of Care Code ED Cloth Brushing And Sueding Supervisor for Faisal Cintron
[2024-11-27 05:31] LABS: Estmated Average Glucose 103; Hemoglobin A1C 5.2 % (4.0-6.0)
[2024-11-27 06:05] LABS: Troponin 5 2HR 10.36 ng/L (0-15); Troponin 5 2HR Delta 4.36001 ABS# (0-10)
[2024-11-27] MEDS: dilTIAZem 100 MG in sodium chloride 0.9% (add-van) 100 ML IV (06:56)
--- NOTE | 2024-11-27 07:10 | PC.NURSE ---
THIS NURSE ASSUMED CARE @ 0700.
--- OUTSIDE RECORDS SUMMARY | 2024-11-27 07:11 | XMS_ITS | Clinical Summary ---
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
--- OUTSIDE RECORDS SUMMARY | 2024-11-27 07:11 | XMS_ITS | Clinical Summary ---
Author Organization [facility] Address [address] [place] [address] Phone Care Team Providers Care Drafter Automotive Design Name Role Phone Unavailable Primary Care Provider [...]
[2024-11-27 07:29] LABS: Lactic Acid level (Lactate) 0.8 mmol/L (0.5-2.2)
[2024-11-27 07:51] LABS: Magnesium 2.1 mg/dL (1.7-2.3); Thyroid Stimulating Hormone 0.71 uIU/mL (0.27-4.20)
[2024-11-27 08:28] LABS: PCP Screen Urine Negative (Negative)
[2024-11-27 08:30] LABS: Glucose Urine UA Trace (Normal); Nitrate Urine Negative (Negative); Specific Gravity, Urine 1.006 (1.005-1.030)
[2024-11-27 08:35] LABS: Add Urine Microscopic? YES
[2024-11-27 10:08] LABS: Coronavirus 229E,HKU1,NL63,OC4 Not Detected (NOT DETECT); Parainfluenza Virus Type 1 Not Detected (NOT DETECT); Parainfluenza Virus Type 2 Not Detected (NOT DETECT); Parainfluenza Virus Type 3 Not Detected (NOT DETECT); Parainfluenza Virus Type 4 Not Detected (NOT DETECT); SARS-COV-2 Not Detected (NOT DETECT)
[2024-11-27 11:08] LABS: Troponin 5 6HR 10.32 ng/L (0-15); Troponin 5 6HR Delta 4.32001 ng/L (0-12)
--- NOTE | 2024-11-27 14:22 | PC.NURSE ---
Cardizem drip has been off since 1050 this am, pt heart rate has maintained NSR 70-80s. Pt repositioned to recliner chair in his room with heart rate increase to 90-100 that quickly returned to 80's upon sitting. Pt reports feeling much better
[2024-11-28 00:27] VITALS: BP 122/68; PULSE 59; RESP 18; TEMP 36.6; O2SAT 98
[2024-11-28 04:00] LABS: Hematocrit 36.6 % (37-53); Hemoglobin 12.50 g/dL (11.27-16.99); Mean Corpuscular HGB Conc 34.2 g/dL (30-55); Mean Corpuscular Hemoglobin 30.6 pg (27-33); Mean Corpuscular Volume 89.7 fl (82-101); Nucleated Red Blood Cells % 0 %; Platelet Count 234 10^3/cmm (157-399); Red Blood Count 4.08 10^6/uL (3.85-5.65); White Blood Count 4.14 10^3/uL (3.29-11.43)
[2024-11-28 04:22] LABS: Anion Gap 15.5 (5-19); Blood Urea Nitrogen 5 mg/dL (6-20); Calcium 8.9 mg/dL (8.5-10.5); Carbon Dioxide 25 mmol/L (22-29); Chloride 106 mmol/L (98-107); Creatinine Clr Calc Pharmacy 117.5278; Glucose 103 mg/dL (65-115); Osmolality Calculated 292 mOsm/kg (285-295); Potassium 4.5 mmol/L (3.5-5.1); Sodium 142 mmol/L (136-145)
[2024-11-28 04:35] VITALS: BP 132/78; PULSE 59; RESP 15; TEMP 36.6; O2SAT 99
[2024-11-28 04:44] VITALS: PULSE 63
--- NOTE | 2024-11-28 07:40 | USCV_ITS ---
Brock Mueller Age: 39 Gender: M : 1985 Exam Date: 11/28/2024 13:49 Ordering Phys: Rhonda Garza MD Technologist: Exam Location: [facility] [place] Indication: cp sob BP: 132 / 80 HR: 73 Rhythm: Sinus Technical Quality: Adequate MEASUREMENTS (Male / Female) Normal Values 2D ECHO LVOT Diameter 2.0 cm LV Ejection Fraction MOD 4C 64.6 % LV Ejection Fraction MOD 2C 64.3 % LV Ejection Fraction 2C AL 64.0 % LA Diameter 3.2 cm RA Systolic Volume 4C AL 39.2 ml RA Systolic Volume 4C MOD 36.6 ml LA Sys Volume AL 43.3 cm cubed LA Sys Volume Index AL 21.4 cm cubed/m squared Aorta at Sinotubular Diameter 2.6 cm M-MODE LA Ao Ratio MM 1.4 AV Cusp Separation MM 2.2 cm DOPPLER AV Peak Velocity 117.0 cm/s LVOT Peak Velocity 105.0 cm/s AV Area Cont Eq vti 3.0 cm squared AV Area Cont Eq pk 2.8 cm squared MV Peak Velocity 90.0 cm/s MV Area PHT 3.7 cm squared Mitral E to A Ratio 1.3 TR Peak Velocity 173.0 cm/s TR Peak Gradient 12.0 mmHg TV Peak E Velocity 81.0 cm/s PV Peak Velocity 101.0 cm/s FINDINGS Left Ventricle Left ventricle is normal in size. LV systolic function is normal with EF of 60-65%. No regional wall motion abnormalities are seen. Right Ventricle Normal in size and function Right Atrium Normal in size Left Atrium Normal in size Mitral Valve Structurally normal mitral valve. Trace mitral regurgitation. Aortic Valve Structurally normal aortic valve. No significant stenosis or regurgitation. Tricuspid Valve Insufficient TR jet to calculate RVSP. Pulmonic Valve Not well visualized Pericardium Normal Aorta Normal in size IVC Appears to be normal CONCLUSIONS LV systolic function is normal with EF of 60-65% Trace mitral regurgitation No comparison studies are available. Grover Mckeon MD (Electronically Signed) Final Date: 28 November 2024 16:20 S
[2024-11-28 07:41] VITALS: BP 123/76; PULSE 54; RESP 16; TEMP 36.4; O2SAT 97
[2024-11-28 08:21] LABS: Estmated Average Glucose 103; Hemoglobin A1C 5.2 % (4.0-6.0)
[2024-11-28 09:54] LABS: Lactate (Lactic Acid level) 1.9 mmol/L (0.5-2.2)
--- NOTE | 2024-11-28 10:05 | ECG_ITS ---
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
[2024-11-28 11:52] VITALS: BP 127/83; PULSE 73; RESP 18; TEMP 36.5; O2SAT 99
--- NOTE | 2024-11-28 14:20 | PM.DCS ---
Discharge Providers Date of Admission: 11/27/24 05:15 Date of Discharge: November 28, 2024 Attending Provider at Admission: Chuck Machado Attending Provider at Discharge: Rhonda Garza MD Consults: Dr. Lyle Primary Care Provider: PCP with family medicine Diagnoses at Discharge Discharge Diagnosis 1. Paroxysmal atrial fibrillation with RVR: 2. Metabolic acidosis: 3. Nausea and vomitin. Pain of molar: Reason for Visit Reason for Visit: CP, Heart beating fast, hard to breath Hospital Course Hospital Course Brock Mueller is a 39 year old patient with a history of post-concussive syndrome and migraine headaches presenting to the ED after awakening around 2 AM with sudden palpitations, chest pain, shortness of breath, and marked anxiety. EMS noted an initial heart rate of 167 bpm in atrial fibrillation. The patient reports alcohol intake yesterday (beer, unspecified quantity) but denies smoking or recreational drug use. Earlier in the day he experienced vomiting, near-syncope in the bathroom, disorientation, profuse sweating, and staggering gait. He has intermittent right molar pain for which he has taken [id number] pain relievers. No fever, chills, diarrhea, leg swelling, or known sleep apnea. Past episodes include a prior ED visit for a dog bite (treated with Augmentin). No history of hypertension, diabetes, stroke, or similar arrhythmia. Patient had done well overnight with no chest pains no shortness of breath Cardizem drip was discontinued at 10 PM last night because patient had converted to sinus rhythm. Patient states sinus rhythm in the 70s. Patient related that he had had ongoing right lower tooth pain and a friend had given him a pill that it will help for the pain he did not know what it was he took the pain medication but immediately he also started getting woozy and the next day he was not feeling well at all he decided to come to the emergency room and patient was in A-fib aside from that blood tested methamphetamine he related that he might be would want pain medicine all what they gave him to help with his pain of his tooth. He denies ever doing any drug denies smoking he does not and the [place]. And he is worried that he will never take any medicine that he does not know anything about. Cardiology Dr. Lyle was consulted and he felt that since patient had gone into sinus rhythm that he might not be able to see him in house and we discussed about the Holter monitor and he agreed that he will follow-up with the patient outpatient post Holter monitor of 14 days. He added that patient be on full aspirin 325 mg once daily and also a low extended Cardizem which I had added to be 90 mg extended release once a day. Patient blood pressure systolic is in the 120s heart rate in the 75s. Patient to undergo echocardiogram prior to leaving the hospital. Have instructed patient to see a dentist because of this right lower molar tooth pain. And he agreed to do that Physical Exam Narrative: Generally patient is in no apparent distress at this time feels good to go home he said. Patient is hemodynamically stable does not take any medicine except for what we are sending him home on. Patient does have migraine and takes cumq-raz-ukucdgb medicine. HEENT normocephalic/atraumatic neck neck is supple cardiovascular heart is regular lungs are pretty much clear abdomen soft nontender nondistended unremarkable extremities are intact no edema has good pulses neurology has no focality lab studies lab studies reviewed and noted. Discharge Data Studies Completed and Pending Completed Studies During Hospitalization Category Date Time Status CXRP [XR chest 1V portable [id number]] Stat Exams 11/27/24 03:41 Completed Pending at discharge Category Date Time Status CV. echo complete* [id number] Routine Ultrasound 11/28/24 07:40 Taken Radiology Impressions Chest X-Ray 11/27/24 03:41 IMPRESSION: No acute cardiopulmonary process. Laboratory Results WBC 4.14 10^3/uL (3.29-11.43) 11/28/24 03:26 RBC 4.08 10^6/uL (3.85-5.65) 11/28/24 03:26 Hgb 12.50 g/dL (11.27-16.99) 11/28/24 03:26 Hct 36.6 % (37-53) L 11/28/24 03:26 MCV 89.7 fl (82-101) 11/28/24 03:26 MCH 30.6 pg (27-33) 11/28/24 03:26 MCHC 34.2 g/dL (30-55) 11/28/24 03:26 RDW 14.0 % (12.1-15.1) 11/28/24 03:26 Plt Count 234 10^3/cmm (157-399) 11/28/24 03:26 MPV 8.8 fL (7.4-10.4) 11/28/24 03:26 Neut % (Auto) 51.8 % 11/28/24 03:26 Lymph % (Auto) 24.4 % 11/28/24 03:26 [place] % (Auto) 17.1 % 11/28/24 03:26 Eos % (Auto) 6.0 % 11/28/24 03:26 Baso % (Auto) 0.5 % 11/28/24 03:26 Neut # (Auto) 2.14 10^3/uL (1.8-7.7) 11/28/24 03:26 Lymph # (Auto) 1.0 10^3/uL (0.8-4.8) 11/28/24 03:26 [place] # (Auto) 0.7 10^3/uL (0.2-0.9) 11/28/24 03: Eos # (Auto) 0.3 10^3/uL (0.0-0.8) 11/28/24 03:26 Baso # (Auto) 0.0 10^3/uL (0.0-0.1) 11/28/24 03:26 Nucleated RBC % (auto) 0 % 11/28/24 03: Nucleated RBCs # 0.0 /100WBC 11/28/24 03:26 PT 12.20 SECONDS (12.1-14.9) 11/27/24 03:50 INR 0.84 (0.8-1.2) 11/27/24 03:50 APTT 23.9 SECONDS (23.9-36.7) 11/27/24 03:50 Sodium 142 mmol/L (136-145) 11/28/24 03:26 Potassium 4.5 mmol/L (3.5-5.1) 11/28/24 03:26 Chloride 106 mmol/L (98-107) 11/28/24 03:26 Carbon Dioxide 25 mmol/L (22-29) 11/28/24 03:26 Anion Gap 15.5 (5-19) 11/28/24 03:26 BUN 5 mg/dL (6-20) L 11/28/24 03:26 Creatinine 0.9 mg/dL (0.7-1.2) 11/28/24 03:26 GFR Calculation 113.7 mL/min (90-130) 11/28/24 03:26 Glucose 103 mg/dL (65-115) 11/28/24 03:26 Estimat Average Glucose 103 11/28/24 03:26 Hemoglobin A1c 5.2 % (4.0-6.0) 11/28/24 03:26 Calculated Osmolality 292 mOsm/kg (285-295) 11/28/24 03:26 Lactic Acid 2.3 mmol/L (0.5-2.2) H 11/27/24 03:50 Lactic Acid (Sepsis) 0.8 mmol/L (0.5-2.2) 11/27/24 07:09 Lactate 1.9 mmol/L (0.5-2.2) 11/28/24 09:03 Calcium 8.9 mg/dL (8.5-10.5) 11/28/24 03:26 Magnesium 2.1 mg/dL (1.7-2.3) 11/27/24 03:50 Total Bilirubin 0.5 mg/dL (0.15-1.2) 11/27/24 03:50 AST 43 U/L (0-40) H 11/27/24 03:50 ALT 22 U/L (0-41) 11/27/24 03:50 Alkaline Phosphatase 76 U/L (40-130) 11/27/24 03:50 Creatine Kinase 319 U/L (39-308) H 11/27/24 03:50 Troponin T Baseline < 6 ng/L (0-15) 11/27/24 03:50 Troponin T 120 Minute 10.36 ng/L (0-15) 11/27/24 05:32 Delta Troponin T 4.36596 ABS# (0-10) 11/27/24 05:32 Troponin T Hi Sens 6Hr 10.32 ng/L (0-15) 11/27/24 10:29 Troponin T Hi Sens 6Hr Delta 4.64014 ng/L (0-12) 11/27/24 10:29 NT-Pro-B Natriuret Pep < 36 pg/mL (0-125) 11/27/24 03:50 Total Protein 7.3 g/dL (6.6-8.7) 11/27/24 03:50 Albumin 4.3 g/dL (3.5-5.2) 11/27/24 03:50 Globulin 3.0 g/dL (1.3-4.6) 11/27/24 03:50 Lipase 33 U/L (13-60) 11/27/24 03:50 TSH 0.71 uIU/mL (0.27-4.20) 11/27/24 03:50 Urine Color Yellow (Yellow) 11/27/24 08:10 Urine Appearance Clear (CLEAR) 11/27/24 08:10 Urine pH 5.5 (5-7) 11/27/24 08:10 Ur Specific [place] 1.006 (1.005-1.030) 11/27/24 08:10 Urine Protein Negative (Negative) 11/27/24 08:10 Urine Glucose (UA) Trace (Normal) H 11/27/24 08:10 Urine Ketones 1+ (Negative) H 11/27/24 08:10 Urine Blood Negative (Negative) 11/27/24 08:10 Urine Nitrate Negative (Negative) 11/27/24 08:10 Urine Bilirubin Negative (Negative) 11/27/24 08:10 Urine Urobilinogen 0.2 mg/dL (Negative) 11/27/24 08:10 Ur Leukocyte Esterase Negative (Negative) 11/27/24 08:10 Urine RBC 0-2 /hpf (0-2) 11/27/24 08:10 Urine WBC 0-5 /hpf (0-5) 11/27/24 08:10 Ur Squamous Epith Cells 0-5 /hpf (0-5) 11/27/24 08:10 Amorphous Sediment Not Reportable 11/27/24 08:10 Urine Bacteria None seen /hpf (NONE) 11/27/24 08:10 Hyaline Casts 0.40 /lpf 11/27/24 08:10 Urine Opiates Screen Negative ng/mL (Negative) 11/27/24 08:10 Ur Barbiturates Screen Negative ng/mL (Negative) 11/27/24 08:10 Ur Phencyclidine Scrn Negative ng/mL (Negative) 11/27/24 08:10 Ur Amphetamines Screen Positive ng/mL (Negative) H 11/27/24 08:10 U Benzodiazepines Scrn Negative ng/mL (Negative) 11/27/24 08:10 Urine Cocaine Screen Negative ng/mL (Negative) 11/27/24 08:10 U Marijuana (THC) Screen Negative ng/mL (Negative) 11/27/24 08:10 Ethyl Alcohol 10 mg/dL (0-10) 11/27/24 03:50 Serum Ketones Negative (Negative) 11/27/24 03:50 Adenovirus (PCR) Not detected (NOT DETECT) 11/27/24 08:00 C. pneumoniae DNA (PCR) Not detected (NOT DETECT) 11/27/24 08:00 Coronavirus 229E (PCR) Not detected (NOT DETECT) 11/27/24 08:00 Human Metapneumovir PCR Not detected (NOT DETECT) 11/27/24 08:00 Influenza A (H1) PCR Not detected (NOT DETECT) 11/27/24 08:00 Influ A (H1/09) PCR Not detected (NOT DETECT) 11/27/24 08:00 Influenza A (H3) PCR Not detected (NOT DETECT) 11/27/24 08:00 Influenza Type A (PCR) Not detected (NOT DETECT) 11/27/24 08:00 Influenza Type B (PCR) Not detected (NOT DETECT) 11/27/24 08:00 M. pneumoniae (PCR) Not detected (NOT DETECT) 11/27/24 08:00 Parainfluenza 1 (PCR) Not detected (NOT DETECT) 11/27/24 08:00 Parainfluenza 2 (PCR) Not detected (NOT DETECT) 11/27/24 08:00 Parainfluenza 3 (PCR) Not detected (NOT DETECT) 11/27/24 08:00 Parainfluenza 4 (PCR) Not detected (NOT DETECT) 11/27/24 08:00 RSV Type A (PCR) Not detected (NOT DETECT) 11/27/24 08:00 RSV Type B (PCR) Not detected (NOT DETECT) 11/27/24 08:00 Entero/Rhino (PCR) Not detected (NOT DETECT) 11/27/24 08:00 SARS-CoV-2 (PCR) Not detected (NOT DETECT) 11/27/24 08:00 Vitals Last Vital Signs Temp 97.7 F 11/28/24 11:52 Pulse 73 11/28/24 11:52 Resp 18 11/28/24 11:52 BP 127/83 11/28/24 11:52 Pulse Ox 99 11/28/24 11:52 O2 Del Method Room Air 11/28/24 11:52 Discharge Plan Discharge Patient Disposition: Home Condition: Stable Prescriptions: New Cardizem 90 mg PO DAILY 30 Days Qty: 30 0RF aspirin 325 mg Tablet 325 mg PO DAILY Qty: 30 0RF Discontinued rimegepant 75 mg tablet,disintegrating 75 mg PO ONCE PRN (Reason: migraine headache) Qty: 8 0RF Rx Instructions: Do not exceed 75mg in a 24 hour period. Bench Press Operator OK for DC: Cardiology Referrals: Janiya Swan FNP [Referring, Nurse Practitioner] - 12/05/24 2:00 pm Patient Instructions: Opioid Safety, Patient Portal & Margaret Instructions Discharge Attestations Time Spent in Discharge Care*: less than 30 min Quality Metrics Clinical Quality Measures [ No reported AMI, CVA or VTE this stay] Coding Level of Care Code 63140 Diagnoses Paroxysmal atrial fibrillation with RVR I48.0 Metabolic acidosis E87.20 Nausea and vomiting R11.2 Pain of molar K08.89 Time Spent (min) 30
[2024-11-28 15:49] VITALS: BP 127/83; PULSE 76; RESP 12; O2SAT 95
== END 2024-11-28 15:50 | disposition home or self-care (01) ==
LOC: ER 03:46 → ER IP 05:30 → CSU 14:50
PROVIDERS: Admitting Provider Internal Medicine; Emergency Provider Student in an Organized Health Care Education/Training Program; Visit Provider Internal Medicine
DX: I48.0 Paroxysmal atrial fibrillation (principal); E87.20 Acidosis, unspecified; R11.2 Nausea with vomiting, unspecified; K08.89 Other specified disorders of teeth and supporting structures; F07.81 Postconcussional syndrome; Z87.891 Personal history of nicotine dependence
CPT/HCPCS: 36415; 71045; 80048; 80053; 80306; 80307; 81001; 82009; 82550; 83036; 83605; 83690; 83735; 83880; 84443; 84484; 85025; 85610; 85730; 87486; 87581; 87633; 93005; 93306; 96361; 96372; 96374; 96375; 99285; A9270; G0378; J1650; J2060; J3490; J7030; J7120; J9999

== ENCOUNTER 2024-11-30 10:30 | Emergency (ER) | payer SELFPAY ==
[2024-11-30 10:35] VITALS: BP 123/57; PULSE 97; RESP 16; TEMP 36.7; O2SAT 95; BMI 25.8
--- OUTSIDE RECORDS SUMMARY | 2024-11-30 10:38 | XMS_ITS | Clinical Summary ---
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
--- OUTSIDE RECORDS SUMMARY | 2024-11-30 10:38 | XMS_ITS | Clinical Summary ---
Author Organization [facility] Address [address] [place] [address] Phone Care Team Providers Care Plaster Machine Operator Name Role Phone Unavailable Primary Care [...]
--- NOTE | 2024-11-30 10:52 | PC.NURSE ---
seizure pads applied to bilat bed rails
--- NOTE | 2024-11-30 11:04 | ED_ITS ---
HPI - Seizure 2 General: Chief Complaint: Seizure Stated Complaint: Seizures, rapid hr, syncope Time Seen by Provider: 11/30/24 10:48 History of Present Illness: HPI Narrative: 39-year-old male presents emergency room complaining of having had 2 seizures this morning. He had 1 seizure on 930 and the second at about 1020. She actually videotaped one of them on her phone which I watched and it does look convincingly like a seizure. Each lasted for about 30 seconds and responded. Associated symptoms: Deny chest pain, chills or fever(s) Related Data Home Medications ?Medication ?Instructions ?Recorded ?Confirmed gabapentin 300 mg capsule 300 mg PO BID 11/30/2411/30 Previous Rx's ?Medication ?Instructions ?Recorded Cardizem 90 mg PO DAILY 30 days #30 t abs 11/28/24 aspirin 325 mg tablet 325 mg PO DAILY #30 tabs levetiracetam 750 mg tablet 750 mg PO BID #60 tabs (Keppra) Allergies Allergy/AdvReac Type Severity Reaction Status Date / Time No Known Allergies Allergy Verified 06/20/24 13:18 Review of Systems 2 Const: Denies: fever(s) or chills Card: Denies: chest pain Resp: Denies: dyspnea GI: Denies: abdominal pain : Denies: dysuria, urinary frequency or urinary urgency Musc: Denies: neck pain or back pain Skin/Breast: Denies: rash PFSH ED 2 PFSH: Medical History No significant past medical history Surgical History No significant past surgical history Family History Mother CAD (coronary artery disease) Social History Smoking and tobacco/nicotine status: former use of tobacco/nicotine Alcohol intake: current Alcohol intake frequency: holidays/special occasions only Substance/Drug Use: never Physical Exam 2 Const: COMMON NORMALS: no acute distress GENERAL APPEARANCE: cooperative and comfortable ORIENTATION/CONSCIOUSNESS: Yes awake, Yes oriented to person, Yes oriented to place and Yes oriented to time HENMT: COMMON NORMALS: normocephalic, atraumatic and hearing grossly normal bilaterally HEAD & SCALP: normocephalic and atraumatic Resp: COMMON NORMALS: normal respiratory effort, No retractions, No use of accessory muscles and clear to auscultation bilaterally AUSCULTATION: clear to auscultation bilaterally Cardio: COMMON NORMALS: regular rate, regular rhythm and No murmurs present (Cardio) RATE: regular rate RHYTHM: regular rhythm GI: COMMON NORMALS: Soft to palpation and No hepatosplenomegaly present A USCULTATION: Yes normoactive bowel sounds PALPATION: Yes Soft to palpation, No Tenderness to palpation present (GI), No Guarding due to palpation present (GI) and Yes No hepatosplenomegaly present Extremity: COMMON NORMALS: normal to inspection, capillary refill normal, no clubbing, cyanosis or edema, no calf tenderness and no pedal edema Neuro: SENSORIUM/ORIENTATION: Yes oriented to person, Yes oriented to place and Yes oriented to time Skin: COMMON NORMALS: no rashes or lesions noted GENERAL SKIN EXAM: no rashes or lesions noted Course 2 Vital Signs: Vital signs: Vital Signs Temperature 98.1 F 11/30/24 10:35 Pulse Rate 75 11/30/24 12:02 Respiratory Rate 18 11/30/24 12:02 Blood Pressure 127/84 11/30/24 12:02 Pulse Oximetry 97 11/30/24 12:02 Oxygen Delivery Me thod Room Air 11/30/24 10:35 MDM - Seizure MDM Narrative Medical decision making narrative: Watched video with the . It does indeed look like he had a seizure the lactate is markedly elevated which I think is from his seizure. He was postictal when he first arrived here after the workup was complete he is feeling better his symptoms have resolved he is back at his normal baseline. He has been loaded with Keppra we will start him on Keppra 750 twice daily have him follow-up with neurology. He has a neurologist he seen in the past he will contact them who also made him a referral for an outpatient EEG through case management Lab Data 11/30/24 10:47 11/30/24 10:47 Labs: Radiology Impressions Chest X-Ray 11/30/24 11:10 Impression: Negative chest. Laboratory Results WBC 8.15 10^3/uL (3.29-11.43) 11/30/24 10:47 RBC 4.37 10^6/uL (3.85-5.65) 11/30/24 10:47 Hgb 13.20 g/dL (11.27-16.99) 11/30/24 10:47 Hct 41.4 % (37-53) 11/30/24 10:47 MCV 94.7 fl (82-101) 11/30/24 10:47 MCH 30.2 pg (27-33) 11/30/24 10:47 MCHC 31.9 g/dL (30-55) 11/30/24 10:47 RDW 14.1 % (12.1-15.1) 11/30/24 10:47 Plt Count 308 10^3/cmm (157-399) 11/30/24 10:47 MPV 9.1 fL (7.4-10.4) 11/30/24 10:47 Neut % (Auto) 53.7 % 11/30/24 10:47 Lymph % (Auto) 29.1 % 11/30/24 10:47 [place] % (Auto) 10.9 % 11/30/24 10:47 Eos % (Auto) 4.5 % 11/30/24 10:47 Baso % (Auto) 0.6 % 11/30/24 10:47 Neut # (Auto) 4.37 10^3/uL (1.8-7.7) 11/30/24 10:47 Lymph # (Auto) 2.4 10^3/uL (0.8-4.8) 11/30/24 10:47 [place] # (Auto) 0.9 10^3/uL (0.2-0.9) 11/30/24 10:47 Eos # (Auto) 0.4 10^3/uL (0.0-0.8) 11/30/24 10:47 Baso # (Auto) 0.1 10^3/uL (0.0-0.1) 11/30/24 10:47 Nucleated RBC % (auto) 0 % 11/30/24 10:47 Nucleated RBCs # 0.0 /100WBC 11/30/24 10:47 Sodium 143 mmol/L (136-145) 11/30/24 10:47 Potassium 4.5 mmol/L (3.5-5.1) 11/30/24 10:47 Chloride 100 mmol/L (98-107) 11/30/24 10:47 Carbon Dioxide 11 mmol/L (22-29) L 11/30/24 10:47 Anion Gap 36.5 (5-19) H 11/30/24 10:47 BUN 9 mg/dL (6-20) 11/30/24 10:47 Creatinine 1.2 mg/dL (0.7-1.2) 11/30/24 10:47 GFR Calculation 81.6 mL/min (90-130) L 11/30/24 10:47 Glucose 107 mg/dL (65-115) 11/30/24 10:47 Calculated Osmolality 295 mOsm/kg (285-295) 11/30/24 10:47 Lactic Acid 18.9 mmol/L (0.5-2.2) H* 11/30/24 10:47 Calcium 9.2 mg/dL (8.5-10.5) 11/30/24 10:47 Total Bilirubin 0.2 mg/dL (0.15-1.2) 11/30/24 10:47 AST 30 U/L (0-40) 11/30/24 10:47 ALT 21 U/L (0-41) 11/30/24 10:47 Alkaline Phosphatase 75 U/L (40-130) 11/30/24 10:47 Total Protein 7.3 g/dL (6.6-8.7) 11/30/24 10:47 Albumin 4.4 g/dL (3.5-5.2) 11/30/24 10:47 Globulin 2.9 g/dL (1.3-4.6) 11/30/24 10:47 Urine Color Yellow (Yellow) 11/30/24 11:29 Urine Appearance Clear (CLEAR) 11/30/24 11:29 Urine pH 5.0 (5-7) 11/30/24 11:29 Ur Specific [place] 1.014 (1.005-1.030) 11/30/24 11:29 Urine Protein 2+ (Negative) A 11/30/24 11:29 Urine Glucose (UA) Negative (Normal) 11/30/24 11:29 Urine Ketones Trace (Negative) 11/30/24 11:29 Urine Blood 1+ (Negative) A 11/30/24 11:29 Urine Nitrate Negative (Negative) 11/30/24 11:29 Urine Bilirubin Negative (Negative) 11/30/24 11:29 Urine Urobilinogen 1.0 mg/dL (Negative) 11/30/24 11:29 Ur Leukocyte Esterase Negative (Negative) 11/30/24 11:29 Urine RBC 0-2 /hpf (0-2) 11/30/24 11:29 Urine WBC 0-5 /hpf (0-5) 11/30/24 11:29 Ur Squamous Epith Cells 0-5 /hpf (0-5) 11/30/24 11:29 Amorphous Sediment Not Reportable 11/30/24 11:29 Urine Bacteria None seen /hpf (NONE) 11/30/24 11:29 Hyaline Casts 4.11 /lpf 11/30/24 11:29 Serum Ketones Negative (Negative) 11/30/24 10:47 All radiology interpretation(s) finalized by discharge Discharge Plan Discharge Patient Disposition: Home Clinical Impression: Generalized seizure Condition: Stable Prescriptions: New levetiracetam [Keppra] 750 mg tablet 750 mg PO BID Qty: 60 0RF No Action aspirin 325 mg Tablet 325 mg PO DAILY Qty: 30 0RF Cardizem 90 mg PO DAILY 30 Days Qty: 30 0RF gabapentin 300 mg Capsule 300 mg PO BID Discharge Orders: Discharge ED (Routine); Ordered 11/30/24 Ordered By: Krzysztof Haile Discharge Diet: Usual diet Discharge Activity: Resume usual activity Patient Instructions: Opioid Safety, Pain Management, Patient Portal & Margaret Instructions Activity Restrictions/Additional Instructions: Thank you for choosing [facility] for your healthcare needs today. It is very important that you follow up as instructed or that you return to the Emergency Department should you have concerns or if your condition changes or worsens in any way. You were seen in the emergency room after seizure episodes. Your labs reflected that you likely did have a seizure. You were given Keppra IV and recommend that you start oral Keppra 750 mg twice a day. Will set you up for an outpatient EEG and follow-up with neurology. You should not drive until you are cleared by neurologist. Print Language: Luxembourger Coding Level of Care Code ED Director Biomedical Engineering for Faisal Cintron
--- NOTE | 2024-11-30 11:10 | XR_ITS ---
WS: [id number] Portable AP upright chest, 11/30/2024 Clinical Data: dyspnea/cough Comparison: Portable chest, 11/27/2024 Findings: No nodules, masses or effusions are seen. The heart is normal. The pulmonary vascularity is not increased. No pneumonia or pneumothorax is seen. There is a monitor on the chest overlying the mediastinum. There are monitor leads on the chest wall. XR/XR chest 1V portable [id number] Impression: Negative chest.
--- NOTE | 2024-11-30 11:11 | ECG_ITS ---
[facility]30 Pat Name: Brock Mueller Department: Room: Gender: Male Spool Tender: : 1985 Requested By: Krzysztof Kim Order Number: [id number] Reading MD: Measurements Intervals [place] Rate: 81 P: 59 CO: 160 QRS: 67 QRSD: 95 T: 49 QT: 353 QTc: 412 Interpretive Statements SINUS RHYTHM POSSIBLE RIGHT VENTRICULAR CONDUCTION DELAY [RSR (QR) IN V1/V2] ST ELEVATION, PROBABLY EARLY REPOLARIZATION [ST ELEVATION WITH NORMALLY INFLECTED T-WAVE] [email or web address]
--- NOTE | 2024-11-30 11:15 | PC.NURSE ---
pt educated on need for urine sample, gave pt urinal.
[2024-11-30] MEDS: levETIRAcetam 1,000 MG/100 ML PREMIX 400 MG IV (11:18)
[2024-11-30 11:19] LABS: Hematocrit 41.4 % (37-53); Hemoglobin 13.20 g/dL (11.27-16.99); Mean Corpuscular HGB Conc 31.9 g/dL (30-55); Mean Corpuscular Hemoglobin 30.2 pg (27-33); Mean Corpuscular Volume 94.7 fl (82-101); Nucleated Red Blood Cells % 0 %; Platelet Count 308 10^3/cmm (157-399); Red Blood Count 4.37 10^6/uL (3.85-5.65); White Blood Count 8.15 10^3/uL (3.29-11.43)
[2024-11-30 11:23] VITALS: BP 126/71; PULSE 82; RESP 15; O2SAT 95
[2024-11-30 11:28] LABS: Ketone (Acetest) Serum Negative (Negative)
[2024-11-30 11:33] LABS: Alanine Aminotransferase 21 U/L (0-41); Albumin Level 4.4 g/dL (3.5-5.2); Alkaline Phosphatase 75 U/L (40-130); Anion Gap 36.5 (5-19); Aspartate Amino Transferase 30 U/L (0-40); Blood Urea Nitrogen 9 mg/dL (6-20); Calcium 9.2 mg/dL (8.5-10.5); Carbon Dioxide 11 mmol/L (22-29); Chloride 100 mmol/L (98-107); Creatinine Clr Calc Pharmacy 89.3789; Globulin 2.9 g/dL (1.3-4.6); Glucose 107 mg/dL (65-115); Osmolality Calculated 295 mOsm/kg (285-295); Potassium 4.5 mmol/L (3.5-5.1); Sodium 143 mmol/L (136-145); Total Protein 7.3 g/dL (6.6-8.7)
[2024-11-30 11:43] LABS: Glucose Urine UA Negative (Normal); Nitrate Urine Negative (Negative); Specific Gravity, Urine 1.014 (1.005-1.030)
[2024-11-30 11:45] LABS: Add Urine Microscopic? YES
[2024-11-30 11:46] LABS: Lactic Sepsis W/Reflex 18.9 mmol/L (0.5-2.2)
[2024-11-30 12:02] VITALS: BP 127/84; PULSE 75; RESP 18; O2SAT 97
[2024-11-30 13:03] LABS: Reflex Lactate Order REFLEX LACTIC ORDERD
[2024-11-30 13:11] VITALS: BP 116/57; PULSE 83; O2SAT 100
--- NOTE | 2024-12-05 14:58 | PC.SOCIAL ---
Nuerology/EEG Followed up with neurology clinic; EEG will need to be ordered by PCP or patient will need seen in neurology first. Message sent to neurology clinic to call and schedule patient with appt.
== END 2024-11-30 13:12 | disposition home or self-care (01) ==
PROVIDERS: Emergency Provider Family Medicine
DX: G40.89 Other seizures (principal); Z79.82 Long term (current) use of aspirin; Z87.891 Personal history of nicotine dependence
CPT/HCPCS: 36415; 71045; 80053; 81001; 82009; 83605; 85025; 93005; 96374; 99285; J1953